=== PATIENT | male | born 1960 | race Caucasian/White ===

== ENCOUNTER → 2021-08-15 10:36 | Outpatient (CLI) | payer BC, SELFPAY ==
[2021-08-15 11:06] LABS: Adenovirus,PCR Not Detected (NotDetected); Bordetella Pertussis Not Detected (NotDetected); Chlamydophila Pneumoniae, PCR Not Detected (NotDetected); Coronavirus 19, PCR Not Detected (NotDetected); Coronavirus 229E Not Detected (NotDetected); Coronavirus NL63 Not Detected (NotDetected); Coronavirus OC43 Not Detected (NotDetected); Coronovirus HKU1,PCR Not Detected (NotDetected); Human Metapneumovirus Not Detected (NotDetected); Influenza A, PCR Not Detected (NotDetected); Influenza AH1, 2009 Not Detected (NotDetected); Influenza AH1, PCR Not Detected (NotDetected); Influenza AH3,PCR Not Detected (NotDetected); Influenza B, PCR Not Detected (NotDetected); Mycoplasma Pneumoniae, PCR Not Detected (NotDetected); Parainfluenza 1, PCR Not Detected (NotDetected); Parainfluenza 2, PCR Not Detected (NotDetected); Parainfluenza 3, PCR Not Detected (NotDetected); Parainfluenza 4, PCR Not Detected (NotDetected); Respiratory Syncytial Virus Not Detected (NotDetected); Rhinovirus/Enterovirus Not Detected (NotDetected)
[2021-08-15 11:14] LABS: Basophils % 0.8 % (0.1-2.0); Eosinophils # 0.2 K/mm3 (0.0-0.4); Eosinophils % 3.5 % (0.1-12.0); Hematocrit 43.5 % (42.0-52.0); Lymphocytes # 1.1 K/mm3 (0.7-4.5); Lymphocytes % 20.5 % (10-50); Mean Corpuscular HGB Conc 32.3 g/dL (31.8-35.4); Mean Corpuscular Hemoglobin 31.2 pg (27.0-31.2); Mean Corpuscular Volume 96.6 fl (80-94); Mean Platelet Volume 8.4 fl (7.4-10.4); Monocytes # 0.3 K/mm3 (0.1-1.0); Monocytes % 5.4 % (1.7-9.3); Neutrophils # 3.8 K/mm3 (1.8-7.8); Neutrophils % 69.8 % (37.0-80.0); Platelet Count 150 K/mm3 (142-424); Red Blood Count 4.51 M/mm3 (4.60-6.20); Red Cell Distribution Width 13.5 % (11.5-17.5); White Blood Count 5.4 K/mm3 (4.8-10.8)
== END ==
PROVIDERS: PCP Family Medicine; Visit Provider Physician Assistant
DX: Z20.822 Contact with and (suspected) exposure to COVID-19 (principal)
CPT/HCPCS: 36415; 85025; 87581; 87632; 87798; C9803; U0003; U0005

== ENCOUNTER → 2021-11-24 07:47 | Outpatient (CLI) | payer BC, SELFPAY ==
[2021-11-24 08:59] LABS: Chloride 107 mmol/L (98-107); Potassium 3.7 mmoL/L (3.5-5.1); Sodium 139 mmol/L (136-145)
[2021-11-24 09:02] LABS: Alanine Aminotransferase 46 U/L (12-78); Albumin Level 3.6 g/dl (3.5-5.0); Alkaline Phosphatase 31 U/L (38-126); Anion Gap 7.7 mEq/L (5-15); Aspartate Amino Transferase 84 U/L (17-59); Bilirubin,Total 0.4 mg/dl (0.2-1.3); Blood Urea Nitrogen 23 mg/dl (9-20); Calcium 8.1 mg/dl (8.4-10.2); Carbon Dioxide 28 mmol/L (22.0-30.0); Cholesterol 117 mg/dl (140-200); Estimated Glomerular Filt Rate 86 ml/min (>60); GFR (African American) 105 ML/MIN (>60); Globulin 1.8 g/dL (1.3-3.2); Glucose 108 mg/dl (74-100); Total Protein,Serum 5.4 g/dl (6.3-8.2); Triglycerides 84 mg/dl (30-150); VLDL Cholesterol 17 mg/dL (0-40)
[2021-11-24 09:03] LABS: Chol/HDL Ratio 2.6 (1-3.5); HDL Cholesterol 45 mg/dl (40-60)
[2021-11-24 09:13] LABS: Direct LDL Cholesterol 59.72 mg/dL (100-129)
[2021-11-24 16:20] LABS: Prostate Specific Ag Screen 1.1 ng/ml (0.0-4.0)
== END ==
PROVIDERS: Visit Provider Family Medicine
DX: I10 Essential (primary) hypertension (principal); E78.5 Hyperlipidemia, unspecified; Z12.5 Encounter for screening for malignant neoplasm of prostate
CPT/HCPCS: 36415; 80053; 80061; G0103

== ENCOUNTER → 2022-05-21 11:50 | Outpatient (CLI) | payer BC, SELFPAY | PROVIDERS: PCP Family Medicine; Visit Provider Family Medicine | DX: G47.69 Other sleep related movement disorders (principal); R06.83 Snoring; G47.33 Obstructive sleep apnea (adult) (pediatric) | CPT/HCPCS: G0399 ==

== ENCOUNTER 2022-08-01 08:45 | Emergency (ER) | payer BC, SELFPAY ==
[2022-08-01 09:08] VITALS: BP 133/82; PULSE 71; RESP 16; TEMP 36.9; O2SAT 95; BMI 27.3
--- NOTE | 2022-08-01 09:19 | EXP.UTC ---
Discharge Plan Disposition Patient Disposition: Home, Self-Care Condition: Good Prescriptions Prescriptions: New benzonatate 100 mg capsule 100 mg PO TID PRN (Reason: cough) Qty: 30 0RF loratadine 10 mg tablet 10 mg PO DAILY Qty: 30 0RF No Action Xarelto 10 mg tablet 10 mg PO .COMPLEX Rx Instructions: 10 mg orally bid; for 35 days atorvastatin 40 MG tablet 40 mg PO DAILY losartan-hydrochlorothiazide 1 EACH tablet 1 ea PO DAILY aspirin 81 MG tablet,chewable 81 mg PO DAILY Referrals Follow up/Referrals: Mj Stein MD [Primary Care Provider] - See instructions Clinical Impressions Clinical Impression: Upper respiratory tract infection Instructions Patient Instructions: DI for Viral Upper Respiratory Infection -- Adult Discharge ED Provider: Macarena Adler [facility] General Stated complaint: congestion,cough Mode of Arrival: Ambulatory Source of Information: Patient Limitations: No Limitations Time Seen by Provider: 08/01/22 09:19 Description of Symptoms (Recalled from Triage Doc. by RN): pt comes in with c/o cough, congestion thta began yesterday. HEENT Symptoms (Recalled from RN notes): Yes Resp Symptoms (Recalled from RN notes): Yes Skin Symptoms (Recalled from RN notes): No MS Symptoms (Recalled from RN notes): No Functional Status (Recalled from RN notes): n/a History of Present Illness Provider Complaint: Pt states that he has a cough and clear sinus congestion that began yesterday. He denies any contact with anyone with flu or Covid. Related Data Home Medications Medication Instructions Recorded Confirmed aspirin 81 mg chewable tablet 81 mg PO DAILY Heart disease 03/22/18 06/11/22 atorvastatin 40 mg tablet 40 mg PO DAILY Cholesterol 03/22/18 06/11/22 losartan 50 mg-hydrochlorothiazide 1 ea PO DAILY blood pressure 03/22/18 06/11/22 12.5 mg tablet rivaroxaban 10 mg tablet (Xarelto) 10 mg PO .COMPLEX 06/11/22 06/11/22 Previous Rx's Medication Instructions Recorded benzonatate 100 mg capsule 100 mg PO TID PRN cough #30 caps 08/01/22 loratadine 10 mg tablet 10 mg PO DAILY #30 tabs 08/01/22 Allergies Allergy/AdvReac Type Severity Reaction Status Date / Time No Known Drug Allergies Allergy Unknown Verified 08/01/22 09:14 [NO KNOWN DRUG ALLERGIES] Worker's Comp Is this a Worker's Comp case?: No [facility] Disclaimer: The information contained in this section may have been updated after the patient was seen, as this information can be updated by other users. Family History (Updated 06/11/22 @ 08:04 by Jeanie Beltrán) Other Asthma Cancer Social History (Updated 06/11/22 @ 08:04 by Jeanie Beltrán) Smoking Status: Never smoker alcohol intake: current counseling provided: none substance use type: denies use current occupational status: employed Travel in the last 8 weeks: None housing: apartment ROS Obtained: Yes All systems reviewed & no additional complaints except as documented Constitutional Constitutional: Reports system reviewed and no additional complaints, except as documented and Reports malaise Eyes Eyes: Reports system reviewed and no additional complaints, except as documented ENT Ears, Nose, Mouth, and Throat: Reports nasal congestion and Reports nasal discharge Cardiovascular Cardiovascular: Reports system reviewed and no additional complaints, except as documented Respiratory Respiratory: Reports cough and Reports non-productive cough Gastrointestinal Gastrointestingal: Reports system reviewed and no additional complaints, except as documented Genitourinary Male Genitourinary: Reports system reviewed and no additional complaints, except as documented Musculoskeletal Musculoskeletal: Reports system reviewed and no additional complaints, except as documented Integumentary/Breasts Skin/Breast: Reports system reviewed and no additional complaints, except as documented Neurologic [place]
[2022-08-01 09:45] VITALS: BP 133/82; PULSE 71; RESP 16; TEMP 36.9
== END 2022-08-01 09:46 | disposition home or self-care (01) ==
PROVIDERS: Emergency Provider Nurse Practitioner Family; PCP Family Medicine
DX: J06.9 Acute upper respiratory infection, unspecified (principal)
CPT/HCPCS: 99212; G0463

== ENCOUNTER 2023-06-15 10:37 | Day surgery (SDC) | payer BC, SELFPAY ==
[2023-06-15 10:58] VITALS: BP 144/72; PULSE 63; RESP 18; TEMP 36.1; O2SAT 96; BMI 27.3
--- NOTE | 2023-06-15 10:59 | HMH.SCOPE ---
Procedure: Date: 06/15/23 Patient Date of :: 1960 Procedure Performed:: Colonoscopy with polypectomy Indications:: History of colon polyps The patient has a history of multiple complex polyps including an adenoma of the ileocecal valve excised in 2014 and 2015. His most recent colonoscopy in 2018 revealed no definitive abnormality. A barium enema in 2018 also revealed no significant abnormality. Performing Provider:: Marcelino Goins MD Referring Provider:: . Sedation:: Monitored anesthesia care Procedure:: After informed consent was obtained the patient was taken to the endoscopy suite. Sedation ensued after the patient was transferred to the left lateral decubitus position. Pulse, blood pressure, and oxygen saturation were monitored throughout the procedure. Digital rectal exam revealed no significant abnormality. The colonoscope was placed in position. The entire colon was evaluated. The colonoscope was carefully removed and the patient was transferred to recovery in stable condition. Please see findings and specimens below for detail. Findings:: Bowel preparation fair Fairly profound tortuosity Hemorrhoidal cushions Cecal polyp Specimens:: Cecal polyp (cold snare) Recommendations:: Timing of repeat colonoscopy is pending pathology will likely be between 3-5 years secondary to history of significant polyps and tortuosity. Complications:: No immediate Estimated blood obtained (mL): 1 Colonoscopy Component Colonoscopy Component Was a colonoscopy performed during today's procedure?: Yes Recommended follow up colonoscopy of at least 10 years?: No If no, follow up colonoscopy recommended in ___ years?: (See above) Reason for not recommending >/= 10 yr follow-up interval?: (See above)
[2023-06-15 11:08] VITALS: O2SAT 98
[2023-06-15 11:40] VITALS: BP 100/56; PULSE 63; RESP 16; TEMP 37.1; O2SAT 94
--- NOTE | 2023-06-15 11:45 | EXP.ANES.CKL ---
[facility] Disclaimer: The information contained in this section may have been updated after the patient was seen, as this information can be updated by other users. Medical History (Updated 06/15/23 @ 10:56 by Miles Colin RN) CAD (coronary artery disease) HLD (hyperlipidemia) HTN (hypertension) Surgical History (Updated 06/15/23 @ 10:57 by Miles Colin RN) History of heart artery stent History of hernia repair Family History (Updated 06/11/22 @ 08:04 by Jeanie Beltrán) Other Asthma Cancer Social History (Updated 06/15/23 @ 10:58 by Miles Colin RN) Smoking Status: Never smoker alcohol intake: never counseling provided: none substance use type: denies use current occupational status: employed Travel in the last 8 weeks: None housing: apartment [facility] Anesthesia Checklist Patient Identification Patient Identification: Arm Band and Family Structural Data Admitted From: Home Planned Operative Procedure/s: colonoscopy Consent for Planned Operative Procedure(s) Verified: Yes Verified Documents: Surgical Consent and History and Physical NPO Status Verified Time NPO: 00:00 Additional verifications Patient : No Anesthesia Reactions: No Hx Blood Transfusions: No Cephalosporin Allergy: No Previous Colonoscopy: Yes Airway Assessment Mallampati Score:: Class II C-Spine Mobility Assessed: Yes TMJ Mobility Assessed: Yes Dentition: Good Dentition Neurological Assessment Level of Consciousness: Awake, Appropriate and Follows Commands Hx Seizures: No Numbness or tingling in extremities: No Anesthesia Plan Anesthesia Risk discussed: Yes ASA Class: II Anesthesia Type: MAC Preoperative Comments Pre-Operative Comments: HTN. Cardiac stents.
[2023-06-15 11:50] VITALS: BP 103/57; PULSE 60; RESP 17; O2SAT 94
[2023-06-15 12:00] VITALS: BP 131/71; PULSE 60; RESP 16; O2SAT 92
[2023-06-15 12:10] VITALS: BP 136/82; PULSE 56; RESP 17; O2SAT 94
== END 2023-06-15 12:15 | disposition home or self-care (01) ==
PROVIDERS: PCP Family Medicine; Visit Provider Surgery
PROC: 0DJD8ZZ Inspection of Lower Intestinal Tract, Via Natural or Artificial Opening Endoscopic (ICD-10-PCS; CPT 45385; principal; 2023-06-15 11:30)
DX: Z12.11 Encounter for screening for malignant neoplasm of colon (principal); Z86.010 Personal history of colon polyps; D12.0 Benign neoplasm of cecum
CPT/HCPCS: 45385

== ENCOUNTER 2023-10-04 07:49 | Outpatient (CLI) | payer BC, SELFPAY ==
--- NOTE | 2023-10-04 07:53 | US_ITS ---
FINAL REPORT CLINICAL HISTORY: HTN, HLD, bilateral claudication, left leg rest pain COMPARISON: None FINDINGS: ANKLE-BRACHIAL PRESSURE INDICES Pressure indices are as follows: RIGHT LOWER EXTREMITY: Ankle-brachial pressure index: 1.3 Comments: Normal LEFT LOWER EXTREMITY: Ankle-brachial pressure index: 1.2 Comments: Normal IMPRESSION: No evidence of significant obstructive peripheral vascular disease of the lower extremities Reviewed, Interpreted and Dictated by Wili Castellano MD Transcribed by Dominique Soler Authenticated and [facility]
== END 2023-10-04 23:59 ==
PROVIDERS: PCP Family Medicine; Visit Provider Physician Assistant
DX: M79.604 Pain in right leg (principal); G89.29 Other chronic pain
CPT/HCPCS: 93923

== ENCOUNTER 2023-10-07 13:55 | Outpatient (CLI) | payer BC, SELFPAY ==
--- NOTE | 2023-10-07 13:59 | XR_ITS ---
FINAL REPORT CLINICAL HISTORY: right leg pain COMPARISON: None FINDINGS: AP and lateral views of the right tibia and fibula were obtained. There is no prior exam for comparison. There is no acute fracture of the right tibia or fibula. The knee and ankle appear intact. The soft tissues are normal. A moderate plantar calcaneal spur is present. IMPRESSION: No acute osseous abnormality of the right tibia or fibula. Reviewed, Interpreted and Dictated by Wili Castellano MD Transcribed by Jessica Lemos Authenticated and [facility]
== END 2023-10-07 23:59 ==
LOC: RAD 13:57
PROVIDERS: PCP Family Medicine; Visit Provider Orthopaedic Surgery
DX: M79.604 Pain in right leg (principal)
CPT/HCPCS: 73590

== ENCOUNTER 2023-11-17 08:00 | Outpatient (RCR) | payer BC, SELFPAY ==
--- NOTE | 2023-09-07 18:18 | HMH.PTOPEV ---
PT Outpatient Evaluation Rehab PT Outpatient Evaluation Start: 09/07/23 17:04 Freq: Status: Active Protocol: Document 09/07/23 17:04 NICOLEMIRACLE (Rec: 09/07/23 18:18 CARROL [id number]) E-signed By Nora Storey, PT Outpatient Therapy Subjective History Subjective History Pt is a 63 y/o male who reports he fell while stepping down off a ladder and landed on his right hip on 10/07/22 at work. Pt reports as the day went on he had gradual worsening of right lateral hip /thigh/knee pain. Pt reports he took a week off work to rest and took Ibuprofen which seemed to subside pain temporarily. Pt reports pain increased when he returned back to work. Pt reports pain is aggravated by prolonged walking and once it is flared up all movement/activity causes pain. Pt reports pain improves with rest during walking; however, if he pushes through pain and continues working/walking rest is less effective especially at the end of the day. Pt reports pain usually occurs in the right anterolateral thigh to the lateral aspect of the knee . Pt also reports intermittent posterior thigh pain. Pt denies numbness/tingling, swelling, redness/warmth, fever or low back pain. Per MD note, 02/08/23 XR R Femur 2V: No evidence of an acute, displaced fracture or dislocation. There is a bipartite patella versus an old, nonhealed patellar fracture. Joint spaces appear normal. 02/08/23 XR R Hip 2-3V to include pelvis: No acute bony abnormality. There is some sclerosis of R pubic body and superior pubic ramus with mild cortical thickening of the ischium which which may be related old pelvic fracture. Pt also reports recent onset of L knee pain due to compensating and shifting his weight onto the left leg. 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 Chief Complaint Pain Symptom Type Ache,Throb Symptoms Relieved By Rest/Positioning,Heat,Ice Symptoms Aggravated By Physical Activity,Walking Symptom Description Intermittent Level of pain today (0-10) 0 Pain scale - at its best (0-10) 0 Pain scale - at its worst (0-10) 7 Hip/Knee Eval Palpation Tenderness right Knee Palpation Overall Comment no TTP noted of the right hip or knee complex, tightness noted of TFL/piri MMT Hip Flexion Strength Grade 4 Good Hip Abduction Strength Grade 4 Good Hip Adduction Strength Grade 5 Normal Hip Extension Strength Grade 5 Normal Hip External Rotation Strength Grade 5 Normal Hip Internal Rotation Strength Grade 5 Normal Knee Extension Strength Grade 5 Normal Knee Flexion Strength Grade 5 Normal ROM Hip Flexion w/Knee Flexed Passive Range 110 of Motion (degrees) Hip External Rotation Active Range of 45 Motion (degrees) Hip Internal Rotation Active Range of 45 Motion (degrees) Knee Extension Active Range of Motion ( 0 degrees) Knee Flexion Active Range of Motion ( 120 degrees) Special Tests Hip Tamara Test Positive Right Sciatic Nerve Tension Test Negative Left,Negative Right Hip Scouring (Quadrant) Test Negative Left,Negative Right Lower Extremity Functional Index Activities Today, do you or would you have any difficulty at all with: a.Any of your usual work, housework or Moderate difficulty school activities b. Your usual hobbies, recreational or Moderate difficulty sporting activities c. Getting into or out of the bath No difficulty d. Walking between rooms No difficulty e. Putting on your shoes or socks No difficulty f. Squatting Moderate difficulty g. Lifting an object, like a bag of No difficulty groceries from the floor h. Performing light activities around A little bit of difficulty your home i. Performing heavy activities around Moderate difficulty your home j. Getting into or out of a car No difficulty k. Walking 2 blocks Moderate difficulty l. Walking a mile Extreme difficulty or unable to perform activity m. Going up or down 10 stairs (about 1 Moderate difficulty flight of stairs) n. Standing for 1 hour Moderate difficulty o. Sitting for 1 hour Extreme difficulty or unable to perform activity p. Running on even ground Extreme difficulty or unable to perform activity q. Running on uneven ground Extreme difficulty or unable to perform activity r. Making sharp turns while running fast Extreme difficulty or unable to perform activity s. Hopping Extreme difficulty or unable to perform activity t. Rolling over in bed Moderate difficulty LEFI Score Lower Extremity Functional Index Score 39 Outpatient Therapy Assessment Impairments Problems/Impairmments Impaired Gait Pattern,Impaired Walking,Impaired Work Activities,Subjective C/O Pain ,Impaired Self Care/Self Management Prognosis Rehab Potential Good Clinical Impression Consistent with Diagnosis Yes Short Term Goals Number of Weeks 3 Increase Ability to Walk Yes: walk 2 blocks with pain 5 /10 or less to assist with occupation Improve Tolerance to Work Activities Yes: report ability to work half a shift with pain 3/10 or less Decrease Subjective C/O Pain Yes: Improve pain at worst to 5/10 to improve overall QOL Improve Self Care/Self Management Yes Patient to be Ind w/ HEP Yes Rheologist Goals Number of Weeks 6 Increase Strength Yes: Improve R hip and core strength to 4+-5/5 grossly to assist with function Increase Ability to Walk Yes: walk 1 mile with pain 3/ 10 or less to assist with occupation Improve Tolerance to Work Activities Yes: report ability to work a full shift with pain 3/10 or less Improve LEFI Score Yes: Improve score to 50/80 to improve overall QOL Decrease Subjective C/O Pain Yes: Improve pain at worst to 3/10 to improve overall QOL Outpatient Therapy Plan of Care Treatment Plan May Include Therapeutic Exercise Including Home Yes Exercise Program Manual Therapy Techniques Yes Neuromuscular Re-education Yes Therapeutic Activities to Return to Yes Previous Functional/Work Level Gait Training Yes ADL/Self Care Education Yes Mechanical Traction Yes Dry Needling Yes Thermal Modalities Yes Electrical Stimulation Yes Ultrasound/Phonophoresis Yes Iontophoresis Yes Orthotics/Bracing/Splinting Yes Massage Yes Eval/Re-Eval Yes Frequency Times per week 2 Duration Number of Weeks 4-6 Addendums This patient is a candidate for social No or vocational rehab? Patient/Guardian verbally acknowledges Yes understanding of treatment program and consents to further treatment? Patient/Guardian verbally acknowledges Yes understanding of diagnosis, prognosis and goals for treatment? Eval Complexity PT Charges 81892 - Low Complexity Shoulder/Elbow Eval Shoulder Objective Measurements Elbow Objective Measurements PHYSICIAN CERTIFICATION: I certify the specified therapy services for Epi Murillo are required, authorized, and reviewed every 30 days.
--- NOTE | 2023-10-19 09:02 | HMH.RHREAS ---
Rehab Reassessment Rehab OP Re-assessment Start: 09/07/23 17:04 Freq: Status: Active Protocol: Document 10/19/23 07:57 NICOLEMIRACLE (Rec: 10/19/23 09:01 CARROL [id number]) E-signed By Nora Storey PT Lower Extremity Functional Index Activities Today, do you or would you have any difficulty at all with: a.Any of your usual work, housework or Moderate difficulty school activities b. Your usual hobbies, recreational or Moderate difficulty sporting activities c. Getting into or out of the bath No difficulty d. Walking between rooms No difficulty e. Putting on your shoes or socks No difficulty f. Squatting A little bit of difficulty g. Lifting an object, like a bag of A little bit of difficulty groceries from the floor h. Performing light activities around A little bit of difficulty your home i. Performing heavy activities around Moderate difficulty your home j. Getting into or out of a car A little bit of difficulty k. Walking 2 blocks A little bit of difficulty l. Walking a mile Moderate difficulty m. Going up or down 10 stairs (about 1 Moderate difficulty flight of stairs) n. Standing for 1 hour Moderate difficulty o. Sitting for 1 hour A little bit of difficulty p. Running on even ground Moderate difficulty q. Running on uneven ground Quite a bit of difficulty r. Making sharp turns while running fast Quite a bit of difficulty s. Hopping Moderate difficulty t. Rolling over in bed No difficulty LEFI Score Lower Extremity Functional Index Score 52 Rehab Re-assessment Objective Objective Notes Palpation: 2/4 TTP of R glute med/min. Pt also demonstrated tenderness to anteromedial groin although reports history of hernia repair when he was in his 20s causing sharp pain upon palpation since. Lumbar AROM WFL without report of pain R hip AROM: hip flexion 115, abd 40, add 30, hip ext 22, hip IR 45, hip ER 45 RLE MMT: 5/5 grossly in open chain, no pain with added resistance Special tests: + FADIR and hip scouring this date, - straight leg raise, sciatic N tension test, MOUNIKA Assessment Assessment Notes Pt has attended 4 PT visits consisting of aerobic exercise , hip mobility, LE stretching/ strengthening, and HEP with good tolerance. Pt demonstrated slight improvement in LEFS score and hip AROM compared to the initial evaluation. Pt continues to reports moderate- severe posterior, anterior and lateral hip pain with prolonged walking and weightbearing activities that improves with rest. Pt did demonstrate positive special tests indicative of hip osteoarthritis and tenderness to palpation of the glute med/ min musculature upon examination this date. Overall , the pt would continue to benefit from skilled PT to further improve subjective report of pain, hip AROM, and functional activity tolerance to assist with return to PLOF and occupational duties. Patient goals met ST/5 Goals Not Met p! at worst, p! after half day at work if not modified Revised Goals n/a Plan Plan Continue initial POC Frequency of Therapy 2x/week Duration of therapy 4 more weeks Time and Billing Re-Eval Time 20 Re-Eval Billing Units 1 PHYSICIAN CERTIFICATION: I certify the specified therapy services for Epi Onealtt are required, authorized, and reviewed every 30 days.
--- NOTE | 2023-11-17 08:34 | HMH.RHREAS ---
Rehab Reassessment Rehab OP Re-assessment Start: 09/07/23 17:04 Freq: Status: Active Protocol: Document 11/17/23 08:15 CARROL (Rec: 11/17/23 08:34 CARROL [id number]) E-signed By Nora Storey PT Lower Extremity Functional Index Activities Today, do you or would you have any difficulty at all with: a.Any of your usual work, housework or A little bit of difficulty school activities b. Your usual hobbies, recreational or No difficulty sporting activities c. Getting into or out of the bath No difficulty d. Walking between rooms No difficulty e. Putting on your shoes or socks No difficulty f. Squatting A little bit of difficulty g. Lifting an object, like a bag of A little bit of difficulty groceries from the floor h. Performing light activities around No difficulty your home i. Performing heavy activities around A little bit of difficulty your home j. Getting into or out of a car No difficulty k. Walking 2 blocks No difficulty l. Walking a mile No difficulty m. Going up or down 10 stairs (about 1 Moderate difficulty flight of stairs) n. Standing for 1 hour No difficulty o. Sitting for 1 hour No difficulty p. Running on even ground Moderate difficulty q. Running on uneven ground Moderate difficulty r. Making sharp turns while running fast A little bit of difficulty s. Hopping A little bit of difficulty t. Rolling over in bed No difficulty LEFI Score Lower Extremity Functional Index Score 68 Rehab Re-assessment Subjective Subjective Pt reports no major in change in pain or symptoms since starting PT. Pt continues to report no pain at rest. Pt continues to report posterior hip, anterior groin and lateral thigh pain after half a day at work rated 7/10 at worst on VAS. Pt reports once pain occurs, all activity aggravates pain. Pt reports pain improves with rest ~10 minutes or longer. Pt reports he has learned to rest and modify his work activity when pain occurs. Pt states he has not yet had an appointment with an orthopedic doctor and has only had recent imaging of his lower leg performed. Objective Objective Notes Palpation: 2/4 TTP of R glute med/min. Lumbar AROM WFL without report of pain R hip AROM: hip flexion 115, abd 40, add 30, hip ext 22, hip IR 45, hip ER 45 RLE MMT: 5/5 grossly in open chain, no pain with added resistance Special tests: + FADIR and hip scouring this date, - straight leg raise, sciatic N tension test, MOUNIKA Assessment Assessment Notes Pt has attended 7 PT sessions 1x/week and was provided with a home exercise program. Treatment sessions have consisted of aerobic exercise, hip mobility, LE stretching/ strengthening, and dry needling with good tolerance. Pt demonstrated improvement in LEFS score this date compared to the previous reassessment; however, the pt continues to report no change in pain with prolonged activity at work. Due to lack of progress with conservative care thus far, pt will be referred back to his MD for further treatment options. PT recommends orthopedic referral and hip MRI/CT at this time to further investigate underlying cause of pain. Patient goals met ST/5 Goals Not Met p! at worst, p! after half day at work if not modified Revised Goals n/a Plan Plan Discharge, refer back to MD for further treatment options. Recommend further imaging of the hip and referral to orthopedics Time and Billing Re-Eval Time 10 Re-Eval Billing Units 1 PHYSICIAN CERTIFICATION: I certify the specified therapy services for Epi Murillo are required, authorized, and reviewed every 30 days.
== END 2023-11-17 09:10 | disposition home or self-care (01) ==
LOC: PT 08:00
PROVIDERS: Visit Provider Student in an Organized Health Care Education/Training Program
DX: M25.551 Pain in right hip (principal)
CPT/HCPCS: 20560; 97010; 97014; 97110; 97140; 97163; 97164; 97530; G0283

== ENCOUNTER 2023-12-07 08:31 | Outpatient (CLI) | payer BC, SELFPAY ==
--- NOTE | 2023-12-07 08:35 | XR_ITS ---
FINAL REPORT CLINICAL HISTORY: Rt Hip Pain, fell off ladder 1 year ago, pain since FINDINGS: Right hip Three views were obtained. There is no acute fracture or dislocation. The joint spaces appear normal. No soft tissue abnormality is identified. IMPRESSION: No acute process. Reviewed, Interpreted and Dictated by Wili Castellano MD Transcribed by Monie Valdez Authenticated and [facility]
== END 2023-12-07 23:59 | disposition home or self-care (01) ==
LOC: RAD 08:32
PROVIDERS: PCP Family Medicine; Visit Provider Orthopaedic Surgery
DX: M25.551 Pain in right hip (principal)
CPT/HCPCS: 73502

== ENCOUNTER 2023-12-15 11:23 | Outpatient (CLI) | payer BC, SELFPAY ==
--- NOTE | 2023-12-15 | XR_ITS ---
FINAL REPORT CLINICAL HISTORY: COUGH WITH HEMOPTOSIS COMPARISON: None FINDINGS: No acute pulmonary density is evident. There is no evidence of effusion or other pleural disease. The mediastinum has a normal appearance. The cardiac silhouette is unremarkable. IMPRESSION: Unremarkable chest exam. Reviewed, Interpreted and Dictated by Mike Trimble MD Transcribed by Jessica Lemos Authenticated and [facility]
== END 2023-12-15 23:59 | disposition home or self-care (01) ==
LOC: RAD 11:24
PROVIDERS: PCP Family Medicine; Visit Provider Physician Assistant
DX: R04.2 Hemoptysis (principal)
CPT/HCPCS: 71046

== ENCOUNTER 2023-12-24 15:46 | Outpatient (CLI) | payer BC, SELFPAY ==
--- NOTE | 2023-12-24 15:47 | MR_ITS ---
FINAL REPORT CLINICAL HISTORY: Rt Hip Pain. fell off ladder 1 year ago. pain down right leg to knee FINDINGS: Multiplanar MR imaging of the right hip was performed without contrast. There is no evidence of fracture or dislocation. There is no evidence of avascular necrosis. No bony mass is identified. A small focus of increased T2 signal is seen in the superior labrum worrisome for a superior labral tear. No significant joint effusion is seen. There is mild distal gluteus minimus and medius peritendinitis. The musculature is intact. No soft tissue mass or cyst is identified. IMPRESSION: Findings worrisome for a superior labral tear. Mild distal gluteus minimus and medius peritendinitis. Authenticated and [facility]
== END 2023-12-24 23:59 | disposition home or self-care (01) ==
LOC: RAD 15:47
PROVIDERS: PCP Family Medicine; Visit Provider Orthopaedic Surgery
DX: M25.551 Pain in right hip (principal)
CPT/HCPCS: 73721

== ENCOUNTER 2024-11-22 06:03 | Day surgery (SDC) | payer BC, SELFPAY ==
[2024-11-17 09:12] VITALS: BMI 25.8
[2024-11-22] MEDS: LACTATED RINGERS 1000ML 1,000 ML 50 ML IV (06:29)
[2024-11-22 06:31] VITALS: BP 121/71; PULSE 58; RESP 18; TEMP 36.4; O2SAT 97
--- NOTE | 2024-11-22 07:24 | P.HP_ITS ---
History of Present Illness *Admission Date: 11/22/24 *Reason for visit:: Melena/Hemoccult positive stool *History of present illness: Mr. Murillo is a 64-year-old gentleman with 6 to 7 weeks of melena and positive fecal Hemoccult who is here for diagnostic upper endoscopy. The examination is deemed medically necessary for diagnostic upper endoscopy. The patient has been seen, interviewed and examined prior to the procedure by both myself and the anesthesia provider. [facility] Disclaimer: The information contained in this section may have been updated after the patient was seen, as this information can be updated by other users. Medical History CAD (coronary artery disease) HLD (hyperlipidemia) HTN (hypertension) Surgical History History of colonoscopy History of heart artery stent History of hernia repair Family History Other Asthma Cancer Social History Smoking Status: Never smoker alcohol intake: never counseling provided: none substance use type: denies use current occupational status: employed Travel in the last 8 weeks: None housing: apartment Have you lived/traveled outside [place] in past 30 days?: No Contact w/someone who lives/traveled outside US past 30 days?: No Exposure to someone with infectious disease in past 14 days?: No Do you have a fever (greater than 100.4 F or 38 C)?: No Have you tested positive for COVID-19: No Exposed to someone with COVID-19 in past 14 days?: No Do you have a sore throat?: No Do you have a cough?: No Do you have any weakness?: No Are you experiencing any nausea/vomitting?: No Do you have any diarrhea?: No Are you experiencing any unusual bleeding?: No Do you have any muscle aches/pain?: No Do you have any abdominal pain?: No Are you experiencing loss of taste or smell?: No Other Medical History Have you received the Flu Vaccine for this season: Yes Have you received the Pneumonia Vaccine: No Review of Systems Review of Systems Review of systems (narrative): Negative *Cardiovascular Comments: Negative *Gastrointestinal Comments: Negative *Genitourinary Comments: Negative *Musculoskeletal Comments: Negative *Neurologic Comments: Negative Meds Home Medications and Allergies Home Medications ?Medication ?Instructions ?Recorded ?Confirmed ?Type atorvastatin 40 mg tablet 40 mg PO DAILY Cholesterol 03/22/18 11/22/24 History losartan 50 mg-hydrochlorothiazide 1 ea PO DAILY blood pressure 03/22/18 11/22/24 History 12.5 mg tablet New Prescriptions to Start Prescriptions: Allergies Allergy/AdvReac Type Severity Reaction Status Date / Time No Known Drug Allergies (NO Allergy Unknown Other Verified 11/22/24 06:30 KNOWN DRUG ALLERGIES) Exam Data for Last 24 hours Vital signs and Labs for Last 24 Hours: Temp Pulse Resp BP Pulse Ox O2 Del Method 97.6 F 58 L 18 121/71 97 Room Air 11/22/24 06:31 11/22/24 06:31 11/22/24 06:31 11/22/24 06:31 11/22/24 06:31 11/22/24 06:31 *Routine HEENT Exam Head: Present normocephalic Eye: Present EOMI and PERRL ENT: Present mucous membranes moist *Routine Neck Exam Neck: Present supple *Routine Respiratory Exam Respiratory: Present CTA bilaterally *Routine Cardiovascular Exam Cardiovascular: Present RRR *Routine Abdominal Exam Abdominal: Present soft and normoactive bowel sounds; Absent tenderness *Routine Rectal Exam Rectal:: deferred *Routine Genitalia Exam Genitalia:: deferred *Routine Extremities Exam Extremities: Absent cyanosis, clubbing or edema *Routine Skin Exam Skin: Present warm; Absent rash *Routine Neurological Exam Neurological: Present alert and oriented X3 Assessment and Plan *Assessment and plan (1) Melena: Status: Acute Category: Medical Code(s): K92.1 - Melena (2) Positive occult stool blood test: Status: Acute Category: Medical Code(s): R19.5 - Other fecal abnormalities (3) Anticoagulant long-term use: Status: Acute Category: Medical Code(s): Z79.01 - [facility] (current) use of anticoagulants Plan A/P: 1. Melena/positive occult blood and presumptive upper GI bleed is the preprocedural diagnosis. The patient will be anesthetized/sedated using MAC sedation. The patient has been seen and examined. Cardiac and lung assessment prior to the examination is stable. Proceed with planned upper endoscopy.
--- NOTE | 2024-11-22 07:26 | P.PNANES_ITS ---
[facility] Disclaimer: The information contained in this section may have been updated after the patient was seen, as this information can be updated by other users. Medical History CAD (coronary artery disease) HLD (hyperlipidemia) HTN (hypertension) Surgical History History of colonoscopy History of heart artery stent History of hernia repair Family History Other Asthma Cancer Social History Smoking Status: Never smoker alcohol intake: never counseling provided: none substance use type: denies use current occupational status: employed Travel in the last 8 weeks: None housing: apartment Have you lived/traveled outside US in past 30 days?: No Contact w/someone who lives/traveled outside US past 30 days?: No Exposure to someone with infectious disease in past 14 days?: No Do you have a fever (greater than 100.4 F or 38 C)?: No Have you tested positive for COVID-19: No Exposed to someone with COVID-19 in past 14 days?: No Do you have a sore throat?: No Do you have a cough?: No Do you have any weakness?: No Are you experiencing any nausea/vomitting?: No Do you have any diarrhea?: No Are you experiencing any unusual bleeding?: No Do you have any muscle aches/pain?: No Do you have any abdominal pain?: No Are you experiencing loss of taste or smell?: No [facility] Anesthesia Checklist Patient Identification Patient Identification: Arm Band Structural Data Admitted From: Home Planned Operative Procedure/s: EGD Consent for Planned Operative Procedure(s) Verified: Yes Verified Documents: Surgical Consent and History and Physical NPO Status Verified Time NPO: 00:00 Additional verifications Anesthesia Reactions: No Hx Blood Transfusions: No Airway Assessment Mallampati Score:: Class II C-Spine Mobility Assessed: Yes TMJ Mobility Assessed: Yes Dentition: Good Dentition Neurological Assessment Level of Consciousness: Awake, Alert and Appropriate Anesthesia Plan Anesthesia Risk discussed: Yes Anesthesia Plan: Verified ASA Class: III Anesthesia Type: MAC
[2024-11-22 07:27] VITALS: O2SAT 98
--- NOTE | 2024-11-22 07:38 | HMH.PROCNOTE ---
[facility] Procedure Note Date: 11/22/24 Time: 07:38 Procedure Note:: Upper Endoscopy Procedure Report: Esophagogastroduodenoscopy with cold biopsies Endoscopost: Corbin Caban II, MD Referring Physician: Epi Stein MD Date of Procedure: November 22, 2024 Equipment: Olympus GIF 190 standard upper endoscope Sedation: MAC sedation Indications: Mr. Murillo is a 64-year-old gentleman with dark stools/possible melena over the last 2 to 3 months. The patient had been on Xarelto and aspirin that were stopped. I do not have any recent hemoglobin/hematocrit seen on [employer] system but patient is on iron. The patient reports no bright red rectal bleeding or hematochezia. He has no abdominal pain or weight loss. He reports no heartburn, reflux, dyspepsia or dysphagia. He does drink alcohol moderately. He did have a colonoscopy in May 2023 and had a single tubular adenoma removed (Marcelino Goins M.D.). Procedure: Prior to the procedure, a history and physical exam was performed, and patient's medications and allergies were reviewed. The risks, benefits and alternatives of the sedation and procedure were discussed with the patient. All questions were answered and informed consent was obtained. The patient was brought to the procedure room. Patient identification and proposed procedure were verified by the physician and the nurse. The patient was placed in a left lateral decubitus position and the scope was passed under direct vision. Throughout the procedure, the patient's blood pressure, pulse, and oxygen saturations were monitored continuously. The upper GI endoscopy was accomplished without difficulty. The patient tolerated the procedure well. Findings: The scope was passed directly into the upper esophagus and advanced to the third portion of the duodenum. The post bulbar duodenum, ampulla and duodenal bulb were normal with normal mucosa and conniventes. Biopsies were taken from the first portion of duodenum to rule out celiac disease. The scope was withdrawn through a normal duodenal bulb and pylorus into the stomach. There was moderate reactive gastropathy of the antrum body and fundus of the stomach with some mild proximal atrophy. Cold biopsies were taken along the lesser curvature. Upon retroflexion there was a very small sliding hiatal hernia. There were no ulcerations erosions or angiodysplasias identified throughout the stomach or duodenum. The scope was then withdrawn into the esophagus. Biopsies were taken from the GE junction but there was no evidence of reflux esophagitis or Best's. The remainder of the esophageal mucosa was normal. Impression: 1. Small sliding 1 to 2 cm hiatal hernia 2. Moderate linear reactive gastropathy with mild gastric atrophy (nonhemorrhagic) Plan: There was no etiology for the patient's dark stools. This certainly could be related to the iron. I am going to obtain CBC and iron studies today. I will discuss the findings with the patient and family.
[2024-11-22 07:42] VITALS: BP 114/65; PULSE 63; RESP 16; TEMP 36.6; O2SAT 95
[2024-11-22 07:52] VITALS: BP 107/63; PULSE 59; RESP 18; O2SAT 94
[2024-11-22 08:02] VITALS: BP 115/63; PULSE 59; RESP 18; O2SAT 96
[2024-11-22 08:12] VITALS: BP 118/81; PULSE 58; RESP 18; O2SAT 98
[2024-11-22 08:32] LABS: Basophils % 0.8 % (0.1-2.0); Eosinophils # 0.2 K/mm3 (0.0-0.4); Hematocrit 43.3 % (42.0-52.0); Hemoglobin 14.7 g/dL (14.1-18.0); Lymphocytes # 0.9 K/mm3 (0.7-4.5); Lymphocytes % 25.3 % (10-50); Mean Corpuscular HGB Conc 33.9 g/dL (31.8-35.4); Mean Corpuscular Hemoglobin 31.3 pg (27.0-31.2); Mean Corpuscular Volume 92.1 fl (80-94); Mean Platelet Volume 10.3 fl (7.4-10.4); Monocytes # 0.4 K/mm3 (0.1-1.0); Neutrophils # 2.2 K/mm3 (1.8-7.8); Neutrophils % 59.9 % (37.0-80.0); Platelet Count 123 K/mm3 (142-424); Red Cell Distribution Width 13.6 % (11.5-17.5); White Blood Count 3.7 K/mm3 (4.8-10.8)
[2024-11-22 12:56] LABS: Iron 147 ug/dL (49-181)
[2024-11-22 13:06] LABS: Total Iron Binding Capacity 247 ug/dL (261-462)
[2024-11-22 13:31] LABS: Ferritin 72.9 ng/ml (17.9-464)
== END 2024-11-22 08:21 | disposition home or self-care (01) ==
PROVIDERS: PCP Family Medicine; Visit Provider Internal Medicine Gastroenterology
PROC: 0DJ08ZZ Inspection of Upper Intestinal Tract, Via Natural or Artificial Opening Endoscopic (ICD-10-PCS; CPT 43239; principal; 2024-11-22 07:30)
DX: K31.9 Disease of stomach and duodenum, unspecified (principal); K44.9 Diaphragmatic hernia without obstruction or gangrene; K29.40 Chronic atrophic gastritis without bleeding; K92.1 Melena; R19.5 Other fecal abnormalities; Z79.01 Long term (current) use of anticoagulants
CPT/HCPCS: 43239; 82728; 83540; 83550; 85025; J7120

== ENCOUNTER 2025-02-28 15:34 | Outpatient (CLI) | payer BC, SELFPAY ==
--- OUTSIDE RECORDS SUMMARY | 2024-08-08 06:45 | XMS_ITS ---
Author Organization [facility] Address [address] [facility] [address] [place] [id number] Care Team Providers Care Ticket Dispatcher Name Role Phone Wilmer Ulisses Primary Care Provider Allergies No Known Allergies Results Component Value Reference Range Notes Hemoccult- IFOBT (in house) Reviewed date:08/08/2024 11:53:57 AM Interpretation: Performing Lab: Notes/Report: results Pos P-CBC With Platelet And Diff erential Reviewed date:08/11/2024 09:54:34 AM Interpretation:rdw 67.7 Performing Lab: Notes/Report: Test performed by [facility], [address] , [address], [place] [address] Fritz Hutchinson MD, [employer] CLIA: [id number] WBC 4.0 3.8-11.5 K/uL Red Blood Cell Count (RBC) 5.08 4.20-5.70 M/mm 3 Hemoglobin (Hgb) 14.2 13.1-17.5 gm/dL Hematocrit (HCT) 46.0 39.0-51.0 % MCV 90.6 79.0-99.0 fL MCH 28.0 26.9-35.0 pg MCHC 30.9 30.4-34.8 g/dL RDW 67.7 38.2-53.0 fL Platelet Count 163 137-397 K/cumm Neutrophils Automated 62.4 41.0-77.0 % Lymphocytes Automated 23.1 14.0-48.0 % Monocytes Automated 9.9 4.0-13.0 % Eosinophils Automated 3.7 0.0-8.0 % Basophils Automated 0.7 0.0-1.5 % Immature Granulocyte Automated 0.2 0.0-1.0 % P-Comprehensive Metabolic Pa juan carlos (CMP) Reviewed date:08/11/2024 09:54:34 AM Interpretation:prot 5.8, alk phos 27, a/g 2.9 Performing Lab: Notes/Report: Test performed by [id number] [address] [place] [address] , [address], [place] [address] Fritz Hutchinson MD, [employer] CLIA: [id number] Sodium 145 135-145 mmol/L Potassium 4.2 3.5-5.3 mmol/L Chloride 106 97-108 mmol/L CO2 27 22-32 mmol/L Glucose 98 65-99 mg/dL BUN 19 8-23 mg/dL Creatinine 0.95 0.70-1.30 mg/dL Calcium 9.6 8.6-10.4 mg/dL eGFR by Creatinine 90 >59 mL/min/1.73m2 Protein 5.8 6.0-8.3 g/dL Albumin 4.3 3.5-5.3 g/dL Alkaline Phosphatase 27 40-129 IU/L ALT (SGPT) 22 <5-55 IU/L AST (SGOT) 19 <5-46 IU/L Bilirubin, Total 0.4 <0.2-1.2 mg/dL A/G Ratio 2.9 1.1-2.5 P-Lipid Panel Reviewed date:08/11/2024 09:54:34 AM Interpretation:Normal Performing Lab: Notes/Report: Test performed by [id number] [address] [place] [address] , [address], [place] [address] Fritz Hutchinson MD, [employer] CLIA: [id number] Cholesterol 143 <200 mg/dL Triglycerides 69 <150 mg/dL HDL Cholesterol 73 >39 mg/dL Cholesterol / HDL Ratio 1.96 0.00-4.99 Ratio Non-HDL Cholesterol 70 <130 mg/dL LDL Cholesterol (Calculation) 56 <130 mg/dL LDL Cholesterol Levels* Less than 100 mg/dL Optimal 100 to 129 mg/dL Near Optimal/ Above Optimal 130 to 159 mg/dL Borderline High 160 to 189 mg/dL High 190 mg/dL and above Very High * Categories as recommended by the 2004 ATPIII guidelines LDL/HDL Ratio 0.8 <3.3 Ratio LDL Cholesterol Patient History Test Date: 07/13/2023 LDL Results: 81 Units: mg/dL % Change: - Test Date: 08/08/2024 LDL Results: 56 Units: mg/dL % Change: -30% P-TSH reflex to FT4 Reviewed date:08/11/2024 09:54:34 AM Interpretation:Normal Performing Lab: Notes/Report: Test performed by [facility], [address] , [address], [place] [address] Fritz Hutchinson MD, [employer] CLIA: [id number] TSH reflex to FT4 0.75 0.43-5.25 mU/L P-Microalbumin/Creatinine, R andom Urine Sample Reviewed date:08/11/2024 09:54:34 AM Interpretation:Normal Performing Lab: Notes/Report: Test performed by [id number] [address] [place] [address] , [address], [place] [address] Fritz Hutchinson MD, [employer] CLIA: [id number] Albumin/Creatinine Ratio, Urine 3 0-30 ug/m g Microalbumin, Urine, Random 0.5 Creatinine, Urine 152.4 RBC Morphology, Hematology Reviewed date:08/11/2024 09:54:34 AM Interpretation: Performing Lab: Notes/Report: Test performed by [id number] [address] [place] [address] , [address], [place] [address] Fritz Hutchinson MD, [employer] CLIA: [id number] Poikilocytosis Slight Anisocytosis Slight Smudge Cells Few Platelet Slide Review Normal WBC: Degenerated WBCs observed. PLT: Platelet clumps noted. True platelet count may be higher than reported. REASON FOR VISIT BLACK STOOLS Medications Medication SIG (Take, Route, Frequency, Duration) Notes Start Date End Date Status Xarelto 2.5 MG 1 tablet Orally Two times a day Active Atorvastatin Calcium 40 MG 1 tab(s) oral ly once a day (at bedtime) Active Losartan Potassium-HCTZ 50-12.5 MG 1 tab(s) orally once a day Active Aspirin Adult Low Dose 81 MG 1 tab(s) orally once a day Active Vital Signs Blood pressure systolic 144 mm Hg 08/08/20 24 Blood pressure diastolic 78 mm Hg 024 Heart Rate 87 /min 08/08/2024 Height 69.50 in 08/08/2024 Weight 174.8 lbs 08/08/2024 BMI 25.44 kg/m2 08/08/2024 Encounters Encounter Location Date Provider Diagnosis [facility] [address] [facility] [address] [place] [id number] 08/08/2024 Ulisses Wedron Dark stools R19.5 ; Essential hypertension I10 ; Dyslipidemia E78.5 and ASCVD (arteriosclerotic cardiovascular disease) I25.10 Assessments Encounter Date Diagnosis (ICD Code) Assessment Notes Treatment Notes Treatment Clinical Notes Section Notes 08/08/2024 Dark stools (ICD-10 - R19.5) Hold Xarelto and ASA for the next few days 08/08/2024 Essential hypertension (ICD-10 - I10) 08/08/2024 Dyslipidemia (ICD-10 - E78.5) 08/08/2024 ASCVD (arteriosclerotic cardiovascular disease) (ICD-10 - I25.10) Plan Of Treatment Medication Medication Name Sig Start Date Stop Date Notes Atorvastatin Calcium 40 MG 1 tab(s) oral ly once a day (at bedtime) Losartan Potassium-HCTZ 50-1 2.5 MG 1 tab(s) orally once a day Treatment Notes Assessment Notes Dark stools Hold Xarelto and ASA for the next few days Next Appt Details Follow Up: via phone to repo rt test results, Reason: Progress Notes * FINN MURILLODOB:1960 (64 yo M)Acc No.[id number]:08/08/2024 Progress Notes Patient: FINN TOMAS Provider: Diamond Guillen M.D. :1960 A ge:64 Y S ex:Male Date:08/08/2024 Address:[address] [place] [address], [id number] Subjective: * Chief Complaints: * 1 . BLACK STOOLS. * HPI: G astroenterology: 64 year old male presents with c/o Blood in Stool P t comnplains of black stools for about 3 weeks. Pt was seen 07/17 for cough and dx with virus. Pt states he had been taking OTC decongestant and thought that may be the cause for stools. Pt states black stools have been off and on since he stopped taking OTC medication. * ROS: D ERMATOLOGY: no R jose guadalupe. n o H rosana. G ASTROENTEROLOGY: no N ausea. n o V omiting. U ROLOGY: no D ifficulty urinating. n o B lood in urine. * Medical History: C oronary Artery Disease, Adenomatous colon polyp, Hypertension, Hyperlipidemia. * Surgical History: 2 stents placed in heart 2011, vasectomy 1991, left inguinal hernia repair 2009, cancer removed from right eye 2012, skin graft 03/2014, Colonoscopy (Dr. Goins) 03/2016, Colonoscopy 2017, C-scope/ polyps/ [facility] 06/2023. * Hospitalization/Major Diagno stic Procedure: D enies Past Hospitalization. * Family History: F ather: , cancer ?lung. M other: , cancer, ? stomach. 2 son(s) - healthy. . * Social History: C URRENT TOBACCO USE S moking Status: Patient does NOT smoke. M arital Status: . 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 Alcohol: No. * Medications: T aking Aspirin Adult Low Dose 81 MG Tablet Delayed Release 1 tab(s) orally once a day , Taking Losartan Potassium-HCTZ 50-12.5 MG Tablet 1 tab(s) orally once a day , Taking Atorvastatin Calcium 40 MG Tablet 1 tab(s) orally once a day (at bedtime) , Taking Xarelto 2.5 MG Tablet 1 tablet Orally Two times a day , Medication List reviewed and reconciled with the patient * Allergies: N .K.D.A. Objective: * Vitals: W t:174.8, Temp:98.1, BP:144/78, HR:87, Nurse:aditya, Ht: 69.50, BMI:25.44. * Examination: G eneral Examination: General Appearance: N AD. H EENT: p alpebral conjunctiva pink. H eart: R SR. L ungs: c lear to auscultation. S kin: n ormal, no rash. P eripheral pulses: n ormal (2+) bilaterally. E xtremities: n o leg edema.? Assessment: * Assessment: 1. D ark stools - R19.5 (Primary) 2 . E ssential hypertension - I10 ? 3 . D yslipidemia - E78.5 4 . A SCVD (arteriosclerotic cardiovascular disease) - I25.10 Plan: * Treatment: Value Reference Range B asophils Automated 0.7 0.0-1.5 - % * E osinophils Automated 3.7 0.0-8.0 - % * H ematocrit (HCT) 46.0 39.0-51.0 - % * H emoglobin (Hgb) 14.2 13.1-17.5 - gm/dL * I mmature Granulocyte Automated 0.2 0.0-1.0 - % * L ymphocytes Automated 23.1 14.0-48.0 - % * M CH 28.0 26.9-35.0 - pg * M CHC 30.9 30.4-34.8 - g/dL * M CV 90.6 79.0-99.0 - fL * M onocytes Automated 9.9 4.0-13.0 - % * P latelet Count 163 137-397 - K/cumm * R ed Blood Cell Count (RBC) 5.08 4.20-5.70 - M/ mm3 * R DW 67.7 H 38.2-53.0 - fL * N eutrophils Automated 62.4 41.0-77.0 - % * W BC 4.0 3.8-11.5 - K/uL * Padmini Pedro 08/11/2024 9:54 :28 AM >See phone encounter ?LAB: Hemoccult- IFOBT (in house) (Collection Date & Time - 08/08/2024)* Value Reference Range r esults Pos * RudyCynthia 08/08/2024 11:45: 09 AM >Veronica Fernandez 08/08/2024 11:53:42 AM > see telephone encounter Notes: Hold Xarelto and ASA for the next few days??2.?Essential hypertension? Continue Losartan Potassium-HCTZ Tablet, 50-12.5 MG, 1 tab(s), orally, once a day.?LAB: P-Comprehensive Metabolic Panel (CMP) (Collection Date & Time - 08/08/2024 10:14 AM)?prot 5.8, alk phos 27, a/g 2.9* Value Reference Range A /G Ratio 2.9 H 1.1-2.5 - * A lbumin 4.3 3.5-5.3 - g/dL * A lkaline Phosphatase 27 L 40-129 - IU/L * A LT (SGPT) 22 <5-55 - IU/L * A ST (SGOT) 19 <5-46 - IU/L * B ilirubin, Total 0.4 <0.2-1.2 - mg/dL * B UN 19 8-23 - mg/dL * C alcium 9.6 8.6-10.4 - mg/dL * C hloride 106 97-108 - mmol/L * C O2 27 22-32 - mmol/L * C reatinine 0.95 0.70-1.30 - mg/dL * G lucose 98 65-99 - mg/dL * P otassium 4.2 3.5-5.3 - mmol/L * S odium 145 135-145 - mmol/L * P rotein 5.8 L 6.0-8.3 - g/dL * e GFR by Creatinine 90 >59 - mL/min/1.73m2 * Padmini Pedro 08/11/2024 9:54 :28 AM >See phone encounter ?LAB: P-TSH reflex to FT4 (Collection Date & Time - 08/08/2024 10:14 AM)? Normal* Value Reference Range T SH reflex to FT4 0.75 0.43-5.25 - mU/L * Padmini Pedro 08/11/2024 9:54 :28 AM >See phone encounter ?LAB: P-Microalbumin/Creatinine, Random Urine Sample (Collection Date & Time - 08/08/2024 10:14 AM)?Normal* Value Reference Range A lbumin/Creatinine Ratio, Urine 3 0-30 - ug /mg * C reatinine, Urine 152.4 - mg/dL * M icroalbumin, Urine, Random 0.5 - mg/dL * Padmini Pedro 08/11/2024 9:54 :28 AM >See phone encounter 3.?Dyslipidemia? Continue Atorvastatin Calcium Tablet, 40 MG, 1 tab(s), orally, once a day (at bedtime).?LAB: P-Comprehensive Metabolic Panel (CMP) (Collection Date & Time - 08/08/2024 10:14 AM)?prot 5.8, alk phos 27, a/g 2.9* Value Reference Range A /G Ratio 2.9 H 1.1-2.5 - * A lbumin 4.3 3.5-5.3 - g/dL * A lkaline Phosphatase 27 L 40-129 - IU/L * A LT (SGPT) 22 <5-55 - IU/L * A ST (SGOT) 19 <5-46 - IU/L * B ilirubin, Total 0.4 <0.2-1.2 - mg/dL * B UN 19 8-23 - mg/dL * C alcium 9.6 8.6-10.4 - mg/dL * C hloride 106 97-108 - mmol/L * C O2 27 22-32 - mmol/L * C reatinine 0.95 0.70-1.30 - mg/dL * G lucose 98 65-99 - mg/dL * P otassium 4.2 3.5-5.3 - mmol/L * S odium 145 135-145 - mmol/L * P rotein 5.8 L 6.0-8.3 - g/dL * e GFR by Creatinine 90 >59 - mL/min/1.73m2 * Padmini Pedro 08/11/2024 9:54 :28 AM >See phone encounter ?LAB: P-Lipid Panel (Collection Date & Time - 08/08/2024 10:14 AM)?Normal* Value Reference Range C holesterol / HDL Ratio 1.96 0.00-4.99 - Ratio * C holesterol 143 <200 - mg/dL * H DL Cholesterol 73 >39 - mg/dL * L DL Cholesterol (Calculation) 56 <130 - mg/d L * L DL/HDL Ratio 0.8 <3.3 - Ratio * N on-HDL Cholesterol 70 <130 - mg/dL * T riglycerides 69 <150 - mg/dL * Padmini Pedro 08/11/2024 9:54 :28 AM >See phone encounter * Labs: * L ab: RBC Morphology, Hematology (Collection Date & Time - 08/08/2024 10:14 AM) Value Reference Range P oikilocytosis Slight - * P latelet Slide Review Normal - * A nisocytosis Slight - * S mudge Cells Few - * [facility], IT support 08/11/2024 12:45:06 : This order was created by the Interface. Padmini Pedro 08/11/2024 9:54:28 AM >See phone encounter * Procedure Codes: 8 2274 ASSAY TEST FOR BLOOD, FECAL, Modifiers: QW * Follow Up: v ia phone to report test results * Images: Billing Information: * Visit Code: 69125 Office Visit, Est Pt., Level 4. * Procedure Codes: 16422 ASSAY TEST FOR BLOOD, FECAL. Modifiers: QW * Electronic signature of Liya Guillen MD on 02/28/2025 at 03:36 PM EDT Sign off status: Pending * Provider: Diamond Guillen M.D. Date: 10/09/2023 Generated for Danielito fatima/Kristopher/Dasha on: 0 02/28/2025 03:36 PM EDT History and Physical Notes * HPI (History of Present Illness) Category Sub-Category Detail Notes Category Not es Gastroenterology Blood in Stool Pt comnplains o f black stools for about 3 weeks. Pt was seen 07/17 for cough and dx with virus. Pt states he had been taking OTC decongestant and thought that may be the cause for stools. Pt states black stools have been off and on since he stopped taking OTC medication Examination Category Sub-Category Detail Notes Category Not es General Examination HEENT: palpebral conjunctiva pink Heart: RSR Lungs: clear to auscultatio n Extremities: no leg edema General Appearance: NAD Skin: normal, no rash Peripheral pulses: normal (2+) bilatera lly
--- OUTSIDE RECORDS SUMMARY | 2024-08-30 06:45 | XMS_ITS ---
Author Organization [facility] Address [address] [facility] [address] [place] [id number] Care Team Providers Care Crisis Counselor Name Role Phone Ulisses Guillen Primary Care Provider Allergies No Known Allergies Results Component Value Reference Range Notes CBC Venipuncture (in house) Reviewed date:08/30/2024 03:16:32 PM Interpretation: Performing Lab: Notes/Report: wbc 3.4 3.5 - 10 lymph 22.8% 15 - 50 mid 6.6% 2 - 15 gran 70.6% 35 - 80 rbc 4.96 3.5 - 5.5 hgb 14.5 11.5 - 16.5 hct 43.8 35 - 55 mcv 88.3 75 - 100 mch 29.3 25 - 35 mchc 33.1 31 - 38 platlet 132 100 - 400 P-Iron with Transferrin Satu ration Reviewed date:08/31/2024 04:51:17 PM Interpretation:Normal Performing Lab: Notes/Report: Test performed by [facility] [employer] [place] , [place] [address] Fritz Hutchinson MD, Business Administration Professor CLIA: [id number] Iron 88 59-158 ug/dL Transferrin 228 200-360 mg/dL Transferrin Saturation Percentage 27 20-50 % P-Ferritin Reviewed date:08/31/2024 04:51:17 PM Interpretation:Normal Performing Lab: Notes/Report: Test performed by [employer] [address] [place], [place] [address] [place] , [address], [place] [address] Fritz Hutchinson MD, Business Administration Professor CLIA: [id number] Ferritin 48.9 30.0-400.0 ng/mL REASON FOR VISIT Follow Up w/ Repeat Labs Medications Medication SIG (Take, Route, Frequency, Duration) Notes Start Date End Date Status Losartan Potassium-HCTZ 50-12.5 MG 1 tab(s) orally once a day Active Atorvastatin Calcium 40 MG 1 tab(s) orally once a day (at bedtime) Active Aspirin Adult Low Dose 81 MG 1 tab(s) orally once a day Not-Taking Xarelto 2.5 MG 1 tablet Orally Two times a day Not-Taking Vital Signs Blood pressure systolic 130 mm Hg 08/30/19 25 Blood pressure diastolic 74 mm Hg 025 Heart Rate 69 /min 08/30/2024 Height 69.50 in 08/30/2024 Weight 173.4 lbs 08/30/2024 BMI 25.24 kg/m2 08/30/2024 Encounters Encounter Location Date Provider Diagnosis [facility] [address] [place] [id number] 08/30/2024 Ulisses Guillen Anemia due to GI blo od loss D50.0 Assessments Encounter Date Diagnosis (ICD Code) Assessment Notes Treatment Notes Treatment Clinical Notes Section Notes 08/30/2024 Anemia due to GI blood loss (ICD-10 - D50.0) Plan Of Treatment Next Appt Details Follow Up: via phone to repo rt test results, Reason: Progress Notes * ALONSOFINNDOB:1960 (64 yo M)Acc No.[id number]:08/30/2024 Patient: FINN TOMAS Provider: Diamond Guillen M.D. :1960 A ge:64 Y S ex:Male Date:08/30/2024 Address:[address] [place] [address], [address] , [id number] Subjective: * Chief Complaints: * 1 . Follow Up w/ Repeat Labs. * HPI: G astroenterology: 64 year old male presents with c/o Blood in Stool P t here to f/u on 08/08/2024 appt. Pt was seen for black stool. Pt states issue has continued with no improvement. * ROS: D ERMATOLOGY: no R jose guadalupe. n o H rosana. G ASTROENTEROLOGY: no N ausea. n o V omiting. n o D iarrhea.? U ROLOGY: no D ifficulty urinating. n o B lood in urine. * Medical History: C oronary Artery Disease, Adenomatous colon polyp, Hypertension, Hyperlipidemia. * Surgical History: 2 stents placed in heart 2011, vasectomy 1991, left inguinal hernia repair 2009, cancer removed from right eye 2012, skin graft 03/2014, Colonoscopy (Dr. Goins) 03/2016, Colonoscopy 2017, C-scope/ polyps/ [facility] 06/2023. * Family History: F ather: , cancer ?lung. M other: , cancer, ? stomach. 2 son(s) - healthy. . * Social History: C URRENT TOBACCO USE S moking Status: Patient does NOT smoke. M arital Status: . 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 Alcohol: No. * Medications: T aking Losartan Potassium-HCTZ 50-12.5 MG Tablet 1 tab(s) orally once a day , Taking Atorvastatin Calcium 40 MG Tablet 1 tab(s) orally once a day (at bedtime) , Not-Taking Aspirin Adult Low Dose 81 MG Tablet Delayed Release 1 tab(s) orally once a day , Not-Taking Xarelto 2.5 MG Tablet 1 tablet Orally Two times a day , Medication List reviewed and reconciled with the patient * Allergies: N .K.D.A. Objective: * Vitals: W t:173.4, Temp:98.0, BP:130/74, HR:69, Nurse:aditya, Ht: 69.50, BMI:25.24. * Examination: G astroenterology: General Appearance: p leasant, NAD. O ral cavity: n ormal. S clera: a nicteric. H eart sounds: r egular, normal S1 S2. L ungs: c lear, no rales or wheezes. A bdomen: B S present, soft, nontender, no guarding or rigidity, no masses felt. Assessment: * Assessment: 1. A nemia due to GI blood loss - D50.0 (Primary) Plan: * Treatment: Value Reference Range I dennise 88 59-158 - ug/dL * T ransferrin 228 200-360 - mg/dL * T ransferrin Saturation Percentage 27 20-50 - % * Veronica Fernandez 08/31/2024 4:50 :28 PM > pt informed of results ?LAB: P-Ferritin (Collection Date & Time - 08/30/2024 10:41 AM)?Normal* Value Reference Range F erritin 48.9 30.0-400.0 - ng/mL * Veronica Fernandez 08/31/2024 4:50 :28 PM > pt informed of results ?LAB: CBC Venipuncture (in house) (Collection Date & Time - 08/30/2024)* Value Reference Range w bc 3.4 3.5 - 10 * l ymph 22.8% 15 - 50 * m id 6.6% 2 - 15 * g ran 70.6% 35 - 80 * r bc 4.96 3.5 - 5.5 * h gb 14.5 11.5 - 16.5 * h ct 43.8 35 - 55 * m cv 88.3 75 - 100 * m ch 29.3 25 - 35 * m chc 33.1 31 - 38 * p latlet 132 100 - 400 * Cynthia Grant 08/30/2024 12:04:4 9 PM > * Procedure Codes: 8 5025 CBC WITH AUTO DIFF * Follow Up: v ia phone to report test results * Images: Billing Information: * Visit Code: 61452 Office Visit, Est Pt., Level 3. * Procedure Codes: 31549 CBC WITH AUTO DIFF. * Electronic signature of Liya Guillen MD on 02/28/2025 at 03:36 PM EDT Sign off status: Pending * Provider: Diamond Guillen M.D. Date: 0 08/30/2024 Generated for Printi ng/Faxing/eTransmitting on: 0 02/28/2025 03:36 PM EDT History and Physical Notes * HPI (History of Present Illness) Category Sub-Category Detail Notes Category Not es Gastroenterology Blood in Stool Pt here to f/u on 08/08/2024 appt. Pt was seen for black stool. Pt states issue has continued with no improvement Examination Category Sub-Category Detail Notes Category Not es Gastroenterology Oral cavity: normal Sclera: anicteric Heart sounds: regular, normal S1 S 2 Lungs: clear, no rales or w heezes Abdomen: BS present, soft, no ntender, no guarding or rigidity, no masses felt General Appearance: pleasant, NAD
--- OUTSIDE RECORDS SUMMARY | 2025-02-28 15:36 | XMS_ITS | Patient Health Record ---
Author Organization [facility] Address [address] [facility] [address] [place] [id number] Care Team Providers Care Bar Attendant Name Role Phone Ulisses Guillen Primary Care Provider Mary Boyd Unavailable [phone] Allergies No Known Allergies Results Component Value Reference Range Notes P-Ferritin Reviewed date:08/31/2024 04:51:17 PM Interpretation:Normal Performing Lab: Notes/Report: Test performed by [facility] [address] [place] [address] , [address], [place] [address] Fritz Hutchinson MD, Digital Sales Manager CLIA: [id number] Ferritin 48.9 30.0-400.0 ng/mL P-Iron with Transferrin Satu ration Reviewed date:08/31/2024 04:51:17 PM Interpretation:Normal Performing Lab: Notes/Report: Test performed by [facility] [address] [place] [address] , [address], [place] [address] Fritz Hutchinson MD, Digital Sales Manager CLIA: [id number] Iron 88 59-158 ug/dL Transferrin 228 200-360 mg/dL Transferrin Saturation Percentage 27 20-50 % CBC Venipuncture (in house) Reviewed date:08/30/2024 03:16:32 [...] - 38 platlet 132 100 - 400 P-CBC With Platelet And Diff erential Reviewed date:08/11/2024 09:54:34 AM Interpretation:rdw 67.7 Performing Lab: Notes/Report: Test performed by [facility] [address] [place] [address] , [address], [place] [address] Fritz Hutchinson MD, Digital Sales Manager CLIA: [id number] WBC 4.0 3.8-11.5 K/uL Red Blood Cell [...] 2.9 Performing Lab: Notes/Report: Test performed by [facility] [address] [place] [address] , [address], [place] [address] Fritz Hutchinson MD, Digital Sales Manager CLIA: [id number] Sodium 145 135-145 mmol/L Potassium 4.2 3.5-5.3 [...] Interpretation:Normal Performing Lab: Notes/Report: Test performed by [facility], [address] , [facility], [place] [address] Fritz Hutchinson MD, Digital Sales Manager CLIA: [id number] Cholesterol 143 <200 mg/dL Triglycerides 69 <150 [...] Interpretation:Normal Performing Lab: Notes/Report: Test performed by [facility] [address] [place], [place] [address] , [address], [place] [address] Fritz Hutchinson MD, Digital Sales Manager CLIA: [id number] TSH reflex to FT4 0.75 0.43-5.25 mU/L P-Microalbumin/Creatinine, R andom Urine Sample Reviewed date:08/11/2024 09:54:34 AM Interpretation:Normal Performing Lab: Notes/Report: Test performed by [facility] [address] [place] [address] , [facility], [place] [address] Fritz Hutchinson MD, Digital Sales Manager CLIA: [id number] Albumin/Creatinine Ratio, Urine 3 0-30 ug/m g Microalbumin, Urine, Random 0.5 Creatinine, Urine 152.4 Hemoccult- IFOBT (in house) Reviewed date:08/08/2024 11:53:57 AM Interpretation: Performing Lab: Notes/Report: results Pos RBC Morphology, Hematology Reviewed date:08/11/2024 09:54:34 AM Interpretation: Performing Lab: Notes/Report: Test performed by [facility] [address] [place] [address] , [place] [address] Fritz Hutchinson MD, Digital Sales Manager CLIA: [id number] Poikilocytosis Slight Anisocytosis Slight Smudge Cells Few Platelet Slide Review Normal WBC: Degenerated WBCs observed. PLT: Platelet clumps noted. True platelet count may be higher than reported. Influenza Screen (in house) Reviewed date:07/17/2024 07:55:57 PM Interpretation:neg Performing Lab: Notes/Report: neg results neg CBC Fingerstick (in house) Reviewed date:07/17/2024 01:19:07 PM Interpretation: Performing Lab: Notes/Report: wbc 5.0 3.5 - 10 lym 13.9 15 - 50 mid 4.0 2 - 15 gran 82.1 35 - 80 rbc 5.21 3.5 - 5.5 hgb 14.0 11.5 - 16.5 hct 45.2 35 - 55 mcv 86.8 75 - 100 mch 26.9 25 - 35 mchc 30.9 31 - 38 plat 109 100 - 400 Covid test (in house) Reviewed date:07/17/2024 01:18:46 PM Interpretation:neg Performing Lab: Notes/Report: neg Result: neg Reason For Referral No Information Medications Medication SIG (Take, Route, Frequency, Duration) Notes Start Date End Date Status Losartan Potassium-HCTZ 50-12.5 MG 1 tab(s) orally once a day Active Atorvastatin Calcium 40 MG 1 tab(s) orally once a day (at bedtime) Active Aspirin Adult Low Dose 81 MG 1 tab(s) orally once a day Not-Taking Xarelto 2.5 MG 1 tablet Orally Two times a day Not-Taking Immunizations Vaccine Route Administration Date Status Comme nts COVID 19 Moderna Unknown 03/24/2021 Administered COVID 19 Moderna Unknown 04/22/2021 Administered COVID 19 Moderna Unknown 12/24/2021 Administered Fluzone PF Quad (6-35 months) Unknown 05/23/2018 Admini stered Fluzone PF Quad (6-35 months) Unknown 05/30/2019 Admini stered Fluzone PF Quad (6-35 months) Unknown 04/16/2020 Admini stered Fluzone Quad (6months&older) Unknown 05/26/2022 Adminis tered Hepatitis A (adult) Unknown 05/23/2018 Administered Shingrix Unknown 05/26/2022 Administered Tetanus Tdap-Adacel (over 7yrs) Unknown 05/24/2017 Admi nistered xFlu shot- 6months-36 months of alm-KLNL-ZLZX-trivalent Unknown 06/01/2016 Administered xFlu shot- 6months-36 months of eeu-JUYC-KNJQ-trivalent Unknown 05/24/2017 Administered Problems Problem Type SNOMED Code ICD Code Onset Dates Problem Status W/U Status Risk Notes Problem Coronary arteriosclerosis (37797618) ASCVD (arteriosclerotic cardiovascular disease) (I25.10) Active confirmed Problem Essential hypertension (39575686) Essential hypertension (I10) Active confirmed Problem Dyslipidemia (359708280) Dyslipidemia (E78.5) Active confirmed Problem Nocturnal myoclonus (G47.69) Active confirmed Problem Anemia due to chronic blood loss (656859789) Anemia due to GI blood loss (D50.0) Active confirmed Vital Signs Heart Rate 69 /min 08/30/2024 Blood pressure diastolic 74 mm Hg 08/30/2024 Height 69.50 in 08/30/2024 Blood pressure systolic 130 mm Hg 08/30/2024 Weight 173.4 lbs 08/30/2024 BMI 25.24 kg/m2 08/30/2024 Encounters Encounter Location Date Provider Diagnosis [facility] [address] [place] [id number] 07/17/2024 Mary Boyd URI (upper respirato ry infection) J06.9 [facility] [address] [place], [place] [id number] 07/24/2024 Mary Boyd URI (upper respirato ry infection) J06.9 [facility] [facility] [address] [place] [id number] 08/08/2024 Ulisses [place] Dark stools R19.5 ; Essential hypertension I10 ; Dyslipidemia E78.5 and ASCVD (arteriosclerotic cardiovascular disease) I25.10 [facility] [address] [place], [place] [id number] 08/30/2024 Ulisses [place] Anemia due to GI blo od loss D50.0 [facility] [address] [place], [place] [id number] 08/08/2024 Ulisses [place] Anemia due to GI blo od loss D50.0 Assessments Encounter Date Diagnosis (ICD Code) Assessment Notes Treatment Notes Treatment Clinical Notes Section Notes 07/17/2024 URI (upper respiratory infection) (ICD-10 - J06.9) fluids, rest, supportive measures for fever/symptom relief 07/24/2024 URI (upper respiratory infection) (ICD-10 - J06.9) note written for return to work 08/08/2024 Essential hypertension (ICD-10 - I10) 08/08/2024 Dark stools (ICD-10 - R19.5) Hold Xarelto and ASA for the next few days 08/08/2024 Anemia due to GI blood loss (ICD-10 - D50.0) 08/30/2024 Anemia due to GI blood loss (ICD-10 - D50.0) 08/08/2024 Dyslipidemia (ICD-10 - E78.5) 08/08/2024 ASCVD (arteriosclerotic cardiovascular disease) (ICD-10 - I25.10) Plan Of Treatment Pending Test Test Name Order Date EGD 08/08/2024 Insurance Providers Payer Name Payer Address Payer Phone Subscriber Number Group Number Insured Name Patient Relationship to Insured Coverage Start Date Coverage End Date [facility] [address] [place] [address] [phone] [id number] FINN GUPTA Self - patient is the insured Medical (General) History Medical History History ICD Code Coronary Artery Disease Adenomatous colon polyp Hypertension hyperlipidemia Surgical History Surgery Date(Month/Year) 2 stents placed in heart 2011 vasectomy 1991 left inguinal hernia repair 2009 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 Goins) 03/2016 Colonoscopy 2018 C-scope/ polyps/ [place] 06/2023 Hospitalization History Reason Date(Month/Year)
--- OUTSIDE RECORDS SUMMARY | 2025-02-28 15:36 | XMS_ITS | Referral Summary ---
Author Organization [facility] ([place], [place], [place], [place]) Address [address] [place] [address] Care Team Providers Care Motor [place] Clerk Name Role Phone Mj Stein MD Primary Care Provider [phone] Lambert Álvarez MD Unavailable [phone] Noel Abbott APRN Unavailable [phone] Allergies No known active allergies Medications aspirin 81 MG EC tablet Take 1 tablet (81 mg total) by mouth daily. 90 tablet 3 05/04/20 23 Active Additional Information Patient not taking.Reported on 11/09/2024 losartan (COZAAR) 50 MG tabletIndications: Essential (primary) hypertension TAKE 1 TABLET BY MOUTH TWICE A DAY 180 tablet 3 06/16/20 24 Active hydroCHLOROthiazid e (MICROZIDE) 12.5 mg capsule TAKE 1 CAPSULE (12.5 MG TOTAL) BY MOUTH TWICE A DAY 180 capsule 3 06/16/20 24 Active Xarelto 2.5 mg tablet TAKE 1 TABLET BY MOUTH TWICE A DAY 180 tablet 3 06/22/20 24 Active Additional Information Patient not taking.Reported on 11/09/2024 atorvastatin (LIPITOR) 40 MG tabletIndications: Mixed hyperlipidemia TAKE 1 TABLET BY MOUTH EVERY DAY 90 tablet 3 10/19/19 25 Active Active Problems Problem Noted Date Diagnosed Date Hyperlipidemia, unspecified 05/04/2023 Essential (primary) hypertension 02/26/2021 ASCVD (arteriosclerotic cardiovascular disease) 02/26/2021 Mixed dyslipidemia 02/26/2021 Encounter for general adult medical examination without abnormal findings 02/06/2020 Social History Tobacco Use Types Packs/Day Years Used Date Smoking Tobacco: Never Smokeless Tobacco: Never Tobacco Cessation:Counseling Given: Not Answered Alcohol Use Standard Drinks/Week Comments Not Currently 0 (1 standard drink = 0.6 oz pur e alcohol) Family and Community Support Answer Humza e Recorded Help with Day to Day Activities Not on file 09/03/2023 Feeling Lonely or Isolated Not on file 09/03 Educational Attainment Answer Date Mick rded Speak language other than Venezuelan at home Not on file 09/03/2023 Want help with school or training Not on file 09/03/2023 Substance Use Answer Date Recorded Used prescription meds for non-medical reasons N ot on file 09/03/2023 Used illegal drugs past 12 months Not on file 09/03/2023 Sex and Gender Information Value Date Recorded Sex Assigned at Not on file Legal Sex Male 1:35 PM CDT Gender Identity Not on file Sexual Orientation Not on file Last Filed Vital Signs Vital Sign Reading Time Taken Comments Blood Pressure 140/80 11/09/2024 9:33 AM EDT Pulse 63 11/09/2024 9:33 AM EDT Temperature - - Respiratory Rate - - Oxygen Saturation - - Inhaled Oxygen Concentration - - Weight 77.1 kg (170 lb) 11/09/2024 9:33 AM EDT Height 172.7 cm (5' 8 ) 11/09/2024 9:33 AM EDT Body Mass Index 25.85 11/09/2024 9:33 AM EDT Plan of Treatment Not on file Insurance BLUE CROSS/BLUE SHIELD Member Subscriber Plan / Payer (Ef fective 2021-Present) Name:Epi Murillo Relation to Subscriber:Self Name:Epi Murillo Payer ID:Not on file Type:Not on file Address: [address] [place] [phone] Care Teams Motor Lodge Clerk Relationship Specialty Start Date End Date Mj Stein MD [address] [place] [address] PCP - General Family Medicine 03/11/23 Lambert Álvarez MD [address] [facility] [address] [id number] Cardiology 03/11/23 Noel Abbott APRN [address] [facility] [address] [place] [address] Nurse Practitioner Cardiology 03/11/23
--- OUTSIDE RECORDS SUMMARY | 2025-02-28 15:36 | XMS_ITS | Clinical Summary ---
Author Organization [employer] ([place], [place], [place], [place]) Address [address] [place] [address] Care Team Providers Care Intake Rn Name Role Phone Mj Stein MD Primary Care Provider [phone] Lambert Álvarez MD Unavailable [phone] Noel Abbott APRN Unavailable [phone] Allergies No known active allergies Medications aspirin [...] adult medical examination without abnormal findings 02/06/2020 Family History Medical History Relation Name Comments Hypertension Father Relation Name Status Comments Father Social History Tobacco Use Types Packs/Day Years [...] Date Mick rded Speak language other than Nicaraguan at home Not on file 09/03/2023 Want [...] 11/09/2024 9:33 AM EDT Plan of Treatment Health Maintenance Due Date Last Done Comments CT Colonography 1962 Colonoscopy 1962 Colorectal Cancer Screening 1962 FOBT/FIT 1962 Fit-DNA (Cologuard) 1962 Sigmoidoscopy 1962 Depression Screening (12+) 1974 HIV Screening 1977 Hepatitis C Screening 1980 Pneumococcal 50+ years (1 of 2 - PCV) 1981 Lipid Panel 1997 Shingles Vaccine (Zoster) (2 of 2) 07/21/20222021 Respiratory Syncytial Virus (RSV) Adult or (1 - Risk 60-74 years 1-dose series) 2022 COVID-19 VACCINE (5 - 2023-2 5 season) 2024 06/17/2022, 12/24/2021, 04/22/2021, Additional history exists Influenza Vaccine (#1) 2025 Tobacco Cessation Counseling and Screening (12+) 11/09/2025 11/09/2024 DTAP/TDAP/TD VACCINES (2 - T d or Tdap) 05/24/2027 05/24/2017 Insurance BLUE CROSS/BLUE SHIELD Care Teams Intake Rn Relationship Specialty Start Date End Date Mj Stein MD [address] [place] [phone] PCP - General Family Medicine 03/11/23 Lambert Álvarez MD [address] [facility] [address] [id number] Cardiology 03/11/23 Noel Abbott APRN [address] [facility] [address] [address] Nurse Practitioner Cardiology 03/11/23
--- OUTSIDE RECORDS SUMMARY | 2025-02-28 15:36 | XMS_ITS | Data Portability ---
Author Organization [facility] SHARIF SandhuS OSCEOLA CLOSED Address [address] [place] [address] Care Team Providers Care Transport Assistant Name Role Phone ALLAGeorge DAVID Stitchdown Thread Laster EPI BAZAN Primary Care Provider Assessment No assessment recorded. Plan of Treatment Reminders Order Date Submit Date Provider Last Modified By Organization Details Last Modified Time Details Appointments FOLLOW UP DAK 2025 08:00A Princess AGUILAR PA-C Not available Not available Not available Lab surgical pathology study 2024 025 [facility], [address] [place] [address], [id number], 02/02/2025 09:33:54 surgical pathology study 2023 024 [facility], [address] [place] [address], [id number], 01/11/2024 14:55:09 Referral None recorded. Procedures None recorded. Surgeries None recorded. Imaging None recorded. Medication Orders None recorded. Patient TargetsNo targets recorded. Patient InstructionsNo instructions recorded. Reason for Referral None Reported. Results Created Date Observation Date Name Description Value Unit Range Abnormal Flag Note LastModifiedBy Organization Detail LastModifiedTime 02/02/2002/01/2025 SURGI ERNA surgical SEE BELOW [place] topat holog y Repor t NAME: EPI FUNES PATH: [id number] PROCE DURE DATE: 02/01 SIGNO UT DATE: 02/02 Copy to: Diagn osis: Right poste rior shoul unruly- BENIG N LICHE NOID KERAT OSIS (BLK) SOURC E OF SPECI MEN: SKIN, R POST SHOUL UNRULY CLINI ERNA INFOR MATIO N: R/O: BCC. ED&C DONE. Gross Descr iptio n: The speci men consi sted of a singl e edmonds tissu e fragm ent which measu red 12 x 8 x 1 mm. Speci men is seria lly secti oned (x4). All is submi tted in one casse tte. Micro scopi c Descr iptio n: The epide rmis is sligh tly acant hotic and hyper kerat otic and there is a band like lymph ocyti c liche noid infla mmato ry infil trate at the derma l epide rmal junct ion. DEVONTE JOHNS MD Johana d Out Date: 02/02 09:33 1 Not Available [facility] [address] [place] [address], [phone], 02/02/2025 09:33:54 Result Notes None recorded. Procedures Surgical History Date Name Laterality Status Provider Name and Address Organization Details Recorded Time 5 DAK - Cryo AK completed [facility] 02/01/2025 11:17:21 5 Blade Biopsy w/ ED&C completed [facility] 02/01/2025 11:13:32 4 DAK - Cryo AK completed [facility] 01/06/2024 09:07:13 4 Blade Biopsy w/ ED&C completed Emmy [facility] 01/06/2024 09:14:11 endoscopy completed [facility] 02/01/2025 10:26:24 Imaging Results None recorded. Procedure Notes None recorded. Medical Equipment None Reported. Allergies No known drug allergies Medications Name Sig Start Date Stop Date Status Note LastModified by Organization Details LastModified Time Asprin Ec Low Dose 81 mg tablet,delayed release Take 1 tablet every day by oral route. active Not Available Not Available No t Available losartan 100 mg-hydrochloro thiazide 12.5 mg tablet Take 1 tablet every day by oral route. active Not Available Not Available No t Available atorvastatin active Not Available Not Available Not Available Xarelto active d/c Not Available Not Avail able Not Available Vitals None Recorded Social History Question Answer Notes LastModified by Organizat ion Details LastModified Time Tobacco Smoking Status Never Smoker Rosi Lemus [facility] 01/06/2024 08:31:53 Sunscreen Use? No [email or web address] Informatio n not available 02/01/2025 Tanning Bed Use No [email or web address] Informati on not available 02/01/2025 What Was The Date Of Your Most Recent Tobacco Screening? 02/01/2025 [email or web address] Information not available 02/01/2025 Sex: Unknown Functional Status Question Answer Note LastModified by Organizat ion Details LastModified Time What is your level of alcohol consumption? Occasional [email or web address] Information not available 01/06/2024 Mental Status None recorded. Family History Relationship Description Onset Age of this Age Resolved Age Notes LastModified by Organization Details LastModified Time Father No current problems or disability [email or web address] Not available 12/15 08:31:41 Mother No current problems or disability [email or web address] Not available 12/15 08:31:41 Medical History Condition Response Basal Cell Carcinoma Y Past Encounters Encounter ID Performer Location Encounter Start Date Encounter Closed Date Diagnosis/Indication Diagnosis SNOMED-CT Code Diagnosis ICD10 Code Diagnosis Note [id number] MARTHA LAWRENCE [facility] [address] [place] [address] 01/06/2024 08:24:49 01/06/2024 09:17:39 Multiple benign melanocytic nevi 258370921 D22.5 D18.01 L82.1 L81.4 The benign nature of keratoses and lentigines was discussed with the patient.Le n protection with SPF 30 broad spectrum sunscreen and protective gear discussed. Look for physical deedee sunscreens with at least SPF 30 containing zinc oxide or titanium dioxide as active ingredient .Recommend monthly self examinatio ns and yearly full skin examinatio n with a dermatolog y provider.R ecommend yearly eye exam.Recom mend OTC Vitamin D supplement .Patient instructed to call if any suspicious lesions are noted. Scar 977258757 L90.5 Z85.828 Scar(s) clear with no evidence recurrence . Continue to monitor for any changes. Neoplasm o f uncertain behavior of skin 26457579 D48.5 The etiology of lesion(s) discussed. Biopsy recommende d.ED&C performed today.Will call pt with results or post to portal if benign. Actinic keratosis L57.0 The nature of the diagnosis was explained. Pre-cancer ous.Will treat with LN2.F/u if treated lesions persist. [id number] MARTHA LAWRENCE [address] [address] 02/01/2025 10:11:39 02/01/2025 11:17:58 Multiple benign melanocytic nevi 188611895 D22.5 L81.4 D18.01 L82.1 The benign nature of keratoses and lentigines was discussed with the patient. Sun protection with SPF 30 broad spectrum sunscreen and protective gear discussed. Look for physical deedee sunscreens with at least SPF 30 containing zinc oxide or titanium dioxide as active ingredient . Recommend monthly self examinatio ns and yearly full skin examinatio n with a dermatolog y provider. Recommend yearly eye exam. Recommend OTC Vitamin D supplement . Patient instructed to call if any suspicious lesions are noted. History of malignant neoplasm of skin excluding melanoma [id number] Z85.828 The scar is clear with no evidence of recurrence .Cont to monitor for any changes. Actinic keratosis L57.0 The nature of the diagnosis was explained. Pre-cancer ous.Will treat with LN2.F/u if treated lesions persist. R Medial Dorsal Hand will need bx if still persisting Neoplasm o f uncertain behavior of skin 60937413 D48.5 The etiology of lesion(s) discussed. Biopsy recommende d.ED&C performed today.Will call pt with results or post to portal if benign. Health Concerns Section Related Observation LastModified by Organization Detai ls LastModified Time None Recorded Concern Status LastModified by Organization Details LastModified Time None Recorded Advance Directives Directive None Recorded Payers Insurance Date Sequence Insurance Name Policy Number Policy Haley Covered Member ID Haley Member ID Guarantor Name 02/06/2025 1 [place] [id number] Epi Murillo [id number] Epi Murillo Notes Date Note Type Note Provider Name and Address Organization Details Recorded Time 01/06/2024 text/html fbseannualhx: nmsc-R medial canthus, L superior shoulder, L posterior shoulderreports: area of concernSpot- L forearmtx: Vaselinereports: It was hard and crusted and growing in size but then it fell off. MARTHA LAWRENCE [address] [place], [address], [facility] 01/06/2024 09:19:27 02/01/2025 text/html FBSEannualHX: BCC - R medial [place], L superior shoulder, L posterior shoulderReports: skin tag on bilateral hands. MARTHA LAWRENCE [address] [place], [address], [facility] 02/04/2025 15:36:52
--- OUTSIDE RECORDS SUMMARY | 2025-02-28 15:36 | XMS_ITS | Encounter Summary ---
Author Organization [employer] ([place], [place], [place], [place]) Address [address] [place] [address] Care Team Providers Care Directory Clerk Name Role Phone Mj Stein MD Primary Care Provider + [phone] Lambert Álvarez MD Unavailable [phone] Noel Abbott APRN Unavailable [phone] Reason for Visit * Reason Comments Medication Refill Encounter Details Date Type Department Care Team (Late st Contact Info) Description 04/22/2023 Refill [facility] Cardiology [address] [place] [address] Lambert Álvarez MD [address] [facility] [address] [place] [address] Hyperlipidemia, unspecified Social History Tobacco Use Types Packs/Day Years Used Date Smoking Tobacco: Never Assessed Sex and Gender Information Value Date Recorded Sex Assigned at Not on file Legal Sex Male 1:35 PM CDT Gender Identity Not on file Sexual Orientation Not on file documented as of this encounter Plan of Treatment Not on file documented as of this encounter Visit Diagnoses Diagnosis Hyperlipidemia, unspecified documented in this encounter Care Teams Directory Clerk Relationship Specialty Start Date End Date Mj Stein MD [address] [place] [address] PCP - General Family Medicine 03/11/23 Lambert Álvarez MD [address] [address] Cardiology 03/11/23 Noel Abbott APRN [address] [id number] Nurse Practitioner Cardiology 03/11/23 documented as of this encounter
--- OUTSIDE RECORDS SUMMARY | 2025-02-28 15:36 | XMS_ITS | Continuity of Care Document ---
Author Organization [facility] JUVENAL Sandhu BUCKHANNON Address [address] [place] [address] Care Team Providers Care Mainspring Strip Inspector Name Role Phone DAVID AGUILAR Suction Drum Drier Operator EPI BAZAN Primary Care Provider Assessment No assessment recorded. Plan of Treatment Reminders Order Date Submit Date Provider Last Modified By Organization Details Last Modified Time Details Appointments FOLLOW UP [facility] 2025 08:00A M RIVKA AGUILAR PA-C Not available Not available Not available Lab surgical pathology study 2024 025 [facility], [address] [place] [address], [phone], 02/02/2025 09:33:54 Referral None recorded. Procedures None recorded. Surgeries None recorded. Imaging None recorded. Medication Orders None recorded. Patient TargetsNo targets recorded. Patient InstructionsNo instructions recorded. Reason for Referral None Reported. Procedures Surgical History Date Name Laterality Status Provider Name and Address Organization Details Recorded Time 5 DAK - Cryo AK completed Opal Daugherty [facility] 02/01/2025 11:17:21 5 Blade Biopsy w/ ED&C completed Opal Daugherty [facility] 02/01/2025 11:13:32 4 DAK - Cryo AK completed Emmy Garrison [facility] 01/06/2024 09:07:13 4 Blade Biopsy w/ ED&C completed Emmy Garrison [facility] 01/06/2024 09:14:11 endoscopy completed Opal Daugherty [facility] 02/01/2025 10:26:24 Imaging Results None recorded. Procedure [...] Time Tobacco Smoking Status [facility] 08:31:53 Sunscreen Use? No [email or web address] Informatio n not available 02/01/2025 Tanning Bed Use No [email or web address] Informati on not available 02/01/2025 What Was The Date Of Your Most Recent Tobacco Screening? 02/01/2025 Information not available 02/01/2025 Sex: Unknown Functional Status Question Answer Note LastModified by Organizat ion Details LastModified Time What is your level of alcohol consumption? Occasional [email or web address] Information not available 01/06/2024 Mental Status None recorded. Family History Relationship Description Onset Age of this Age Resolved Age Notes LastModified by Organization Details LastModified Time Father No current problems or disability [email or web address] Not available 12/15 08:31:41 Mother No current problems or disability [email or web address] Not available 12/15 08:31:41 Medical History Condition Response Basal Cell Carcinoma Y Past Encounters Encounter ID Performer Location Encounter Start Date Encounter Closed Date Diagnosis/Indication Diagnosis SNOMED-CT Code Diagnosis ICD10 Code Diagnosis Note [id number] MARTHA LAWRENCE [place] [address] [place] [address] 02/01/2025 10:11:39 02/01/2025 11:17:58 Multiple benign melanocytic nevi [id number] D22.5 L81.4 D18.01 L82.1 The benign nature [...] of malignant neoplasm of skin excluding melanoma 726651293 Z85.828 The scar is clear with no evidence of recurrence .Cont to monitor for any changes. Actinic keratosis 007 L57.0 The nature of the diagnosis was explained. Pre-cancer ous.Will treat with LN2.F/u if treated lesions persist. R Medial Dorsal Hand will need bx if still persisting Neoplasm o f uncertain behavior of skin 08975838 D48.5 The etiology of lesion(s) discussed. Biopsy recommende d.ED&C performed today.Will call pt with results or post to portal if benign. Health Concerns Section Related Observation LastModified by Organization Detai ls LastModified Time None Recorded Concern Status LastModified by Organization Details LastModified Time None Recorded Payers Encounter Date Sequence Insurance Name Policy Number Policy Haley Covered Member ID Haley Member ID Guarantor Name 02/01/2025 1 [place] [id number] Epi Murillo [id number] Epi Murillo Notes Date Note Type Note Provider Name and Address Organization Details Recorded Time 02/01/2025 text/html FBSEannualHX: BCC - R medial Canthus, L superior shoulder, L posterior shoulderReports: skin tag on bilateral hands. MARTHA LAWRENCE [address] [place], [address], [facility] 02/04/2025 15:36:52
--- OUTSIDE RECORDS SUMMARY | 2025-02-28 15:36 | XMS_ITS | Encounter Summary ---
Author Organization [employer] ([place], [place], [place], [place]) Address [address] [place] [address] Care Team Providers Care Foreign Food Specialty Cook Name Role Phone Mj Stein MD Primary Care Provider [phone] Lambert Álvarez MD Unavailable [phone] Noel Abbott LICENSED INSURANCE SALES AGENT Unavailable [phone] Reason for Visit * Reason Comments Medication Refill Encounter Details Date Type Department Care Team (Late st Contact Info) Description 02/17/2024 Refill [facility] Cardiology [address] [place] [address] Noel Abbott APRN [address] [facility] [address] [place] [address] Mixed hyperlipidemia Social History Tobacco Use Types Packs/Day Years Used Date Smoking Tobacco: Never Smokeless Tobacco: Never Alcohol Use Standard Drinks/Week Comments Not Currently 0 (1 standard drink = 0.6 oz pur e alcohol) Family and Community Support Answer Humza e Recorded Help with Day to Day Activities Not on file 09/03/2023 Feeling Lonely or Isolated Not on file 09/03 Educational Attainment Answer Date Mick rded Speak language other than Lithuanian at home Not on file 09/03/2023 Want [...] as of this encounter Visit Diagnoses Diagnosis Mixed hyperlipidemia documented in this encounter Care Teams Foreign Food Specialty Cook Relationship Specialty Start Date End Date Mj Stein MD [address] [place], [place] [address] PCP - General Family Medicine 03/11/23 Lambert Álvarez MD [address] [facility] [address] [address] Cardiology 03/11/23 Noel Abbott APRN [address] [facility] [address] [address] Nurse Practitioner Cardiology 03/11/23 documented as of this encounter
--- OUTSIDE RECORDS SUMMARY | 2025-02-28 15:36 | XMS_ITS ---
Author Organization Unknown Medications Medication Instructions Effective Dates (start - stop) Status - 6911-45-67O36:00 :00.000+00 :00 - Completed atorvastatin 40 MG Oral Tablet 2 533-08-68I28:00:00.000+00 :00 - Completed atorvastatin 40 MG Oral Tablet 2 105-21-15N37:00:00.000+00 :00 - Completed atorvastatin 40 MG Oral Tablet 2 029-31-33Y71:00:00.000+00 :00 - Completed atorvastatin 40 MG Oral Tablet 2 715-03-63A88:00:00.000+00 :00 - Completed atorvastatin 40 MG Oral Tablet 2 135-39-82D09:00:00.000+00 :00 - Completed losartan potassium 50 MG Oral Tablet 9011-20-80B43:00:00.000+00 :00 - Completed losartan potassium 50 MG Oral Tablet 0458-79-11A89:00:00.000+00 :00 - Completed losartan potassium 50 MG Oral Tablet 9525-71-08J33:00:00.000+00 :00 - Completed losartan potassium 50 MG Oral Tablet 4149-06-37W85:00:00.000+00 :00 - Completed 0.5 ML varicella zoster viru s glycoprotein E, recombinant 0.1 MG/ML Injection [Shingrix] 3889-69-48G75:00:00.000+00 :00 - Completed etodolac 400 MG Oral Tablet 2022:00:00.000+00 :00 - Completed etodolac 400 MG Oral Tablet 2021:00:00.000+00 :00 - Completed etodolac 400 MG Oral Tablet 2021:00:00.000+00 :00 - Completed etodolac 400 MG Oral Tablet 2021:00:00.000+00 :00 - Completed etodolac 400 MG Oral Tablet 2021T:00:00.000+00 :00 - Completed etodolac 400 MG Oral Tablet 2021T:00:00.000+00 :00 - Completed etodolac 400 MG Oral Tablet 2021T:00:00.000+00 :00 - Completed rivaroxaban 2.5 MG Oral Tabl et [Xarelto] 5720-84-34D71:00:00.000+00 :00 - Completed rivaroxaban 2.5 MG Oral Tabl et [Xarelto] 9644-66-04O39:00:00.000+00 :00 - Completed rivaroxaban 2.5 MG Oral Tabl et [Xarelto] 3120-04-10J02:00:00.000+00 :00 - Completed rivaroxaban 2.5 MG Oral Tabl et [Xarelto] 5953-83-56D58:00:00.000+00 :00 - Completed hydrochlorothiazide 12.5 MG Oral Capsule 7990-48-63R61:00:00.000+00 :00 - Completed hydrochlorothiazide 12.5 MG Oral Capsule 4850-84-90U95:00:00.000+00 :00 - Completed hydrochlorothiazide 12.5 MG Oral Capsule 8655-62-98O65:00:00.000+00 :00 - Completed hydrochlorothiazide 12.5 MG Oral Capsule 2685-10-06Z90:00:00.000+00 :00 - Completed benzonatate 100 MG Oral Capsule 2699-10-55H05:00:00.000+00 :00 - Completed - 3761-80-73I85:00 :00.000+00 :00 - Completed Patient Care team information Name Category Status Period Participants - - Proposed period not known -
== END 2025-02-28 23:59 | disposition home or self-care (01) ==
LOC: LAB 15:34
PROVIDERS: PCP Family Medicine; Visit Provider Internal Medicine Gastroenterology
DX: K29.70 Gastritis, unspecified, without bleeding (principal); B96.81 Helicobacter pylori [H. pylori] as the cause of diseases classified elsewhere
CPT/HCPCS: 83013